=== PATIENT | male | born 1965 | race Caucasian/White ===

== ENCOUNTER 2017-06-27 17:46 | Emergency (ER) | payer OTHER, BC ==
--- NOTE | 2017-06-27 18:49 | ER Document Report ---
ED Medical Screen (RME) - General Chief Complaint: Urinary Retention Stated Complaint: LEFT FLANK PAIN,PAINFUL URINATION Time Seen by Provider: 06/27/17 18:47 Notes: Patient states he has been unable to urinate well for several days and now he has severe suprapubic pain he also feels nauseated lightheaded and dizzy. TRAVEL OUTSIDE OF THE [place] IN LAST 30 DAYS: No - Related Data Allergies/Adverse Reactions: morphine [Morphine] Allergy (Unknown, Verified 06/27/17 18:33) Past Medical History - Social History Frequency of alcohol use: None Drug Abuse: None - Past Medical History Cardiac Medical History: Reports: Hx Hypertension Renal/ Medical History: Denies: Hx Peritoneal Dialysis GI Medical History: Reports: Hx Gastroesophageal Reflux Disease Psychiatric Medical History: Reports: Hx Depression Past Surgical History: Reports: Hx Orthopedic Surgery - r knee - Immunizations Hx Diphtheria, Pertussis, Tetanus Vaccination: Yes Physical Exam - Vital signs Vitals: Temp Pulse Resp BP Pulse Ox 98.5 F 100 16 124/93 H 98 06/27/17 18:29 06/27/17 18:29 06/27/17 18:29 06/27/17 18:29 06/27/17 18:29 Course - Vital Signs Vital signs: Temp Pulse Resp BP Pulse Ox 98.5 F 100 16 124/93 H 98 06/27/17 18:29 06/27/17 18:29 06/27/17 18:29 06/27/17 18:29 06/27/17 18:29
[2017-06-27] MEDS ORDERED: KETOROLAC TROMETHAMINE INJ/PF 30 MG/1 ML SDV IV ONE (19:02)
[2017-06-27] MEDS ORDERED: MECLIZINE HCL 25 MG TABLET PO ONE (19:02)
[2017-06-27] MEDS ORDERED: LIDOCAINE 2% URO-JET 5 ML KIT MM ONE (19:02)
--- NOTE | 2017-06-27 19:02 | ER Document Report ---
ED GI/ - General Mode of Arrival: Ambulatory Information source: Patient TRAVEL OUTSIDE OF THE [place] IN LAST 30 DAYS: No - HPI Patient complains to provider of: Other - see narrative Similar symptoms previously: No Recently seen / treated by doctor: No <JESSIKA PIERCE - Last Filed: 06/27/17 20:02> <IVY CASSIDY - Last Filed: 06/28/17 01:52> - General Chief Complaint: Urinary Retention Stated Complaint: LEFT FLANK PAIN,PAINFUL URINATION Time Seen by Provider: 06/27/17 18:47 Notes: Patient is a 52 year old male that presents to the emergency department today with complaints of difficulty urinating x2-3 days. Patient states that initially he was "only able to get a little out and it burned" but he has now not been able to urinate since noon today. Patient states states he always feels like he needs to go now but cannot. Patient states he did not take his morning blood pressure medication this morning secondary to being hypotensive. Patient also complains of dizziness and back pain for two weeks. (JESSIKA PIERCE ) - Related Data Allergies/Adverse Reactions: morphine [Morphine] Allergy (Unknown, Verified 06/27/17 18:33) Past Medical History - General Information source: Patient - Social History Smoking Status: Former Smoker Frequency of alcohol use: None Drug Abuse: None Lives with: Family Family History: Reviewed & Not Pertinent, Hypertension, Other - Early heart attack Patient has suicidal ideation: No Patient has homicidal ideation: No - Past Medical History Cardiac Medical History: Reports: Hx Hypertension GI Medical History: Reports: Hx Gastroesophageal Reflux Disease Psychiatric Medical History: Reports: Hx Depression Past Surgical History: Reports: Hx Orthopedic Surgery - r knee - Immunizations Hx Diphtheria, Pertussis, Tetanus Vaccination: Yes <JESSIKA PIERCE - Last Filed: 06/27/17 20:02> Review of Systems - Review of Systems Constitutional: No symptoms reported EENT: No symptoms reported Cardiovascular: See HPI, Dizziness Respiratory: No symptoms reported Gastrointestinal: No symptoms reported Genitourinary: See HPI, Burning, Retention Male Genitourinary: No symptoms reported Musculoskeletal: See HPI, Back pain Skin: No symptoms reported Hematologic/Lymphatic: No symptoms reported Neurological/Psychological: No symptoms reported -: Yes All other systems reviewed and negative <JESSIKA PIERCE - Last Filed: 06/27/17 20:02> Physical Exam <JESSIKA PIERCE - Last Filed: 06/27/17 20:02> <IVY CASSIDY - Last Filed: 06/28/17 01:52> - Vital signs Vitals: Temp Pulse Resp BP Pulse Ox 98.5 F 100 16 124/93 H 98 06/27/17 18:29 06/27/17 18:29 06/27/17 18:29 06/27/17 18:29 06/27/17 18:29 - Notes Notes: Physical Exam: General: Alert, appears well. HEENT: Normocephalic. Atraumatic. PERRL. Extraocular movements intact. Oropharynx clear. Slight lateral gaze nystagmus. Neck: Supple. Non-tender. Respiratory: No respiratory distress. Clear and equal breath sounds bilaterally. Cardiovascular: Regular rate and rhythm. Abdominal: Suprapubic tenderness with palpation, palpable fullness. No distension. Normal Bowel Sounds. Back: Left paraspinal lumbar musculature tenderness with palpation. No deformity or step off. Extremities: Moves all four extremities. Upper extremities: Normal inspection. Normal ROM. Lower extremities: Normal inspection. No edema. Normal ROM. Neurological: Normal cognition. AAOx4. Normal speech. Psychological: Normal affect. Normal Mood. Skin: Warm. Dry. Normal color. (JESSIKA PIERCE) Course <JESSIKA PIERCE - Last Filed: 06/27/17 20:02> - Laboratory Result Diagrams: 06/27/17 20:10 06/27/17 20:10 - Diagnostic Test Radiology reviewed: Image reviewed, Reports reviewed - CT of the abdomen and pelvis with contrast does not show any acute inflammatory process or other abnormality other than multiple gallstones without evidence of inflammation or fluid. <IVY CASSIDY - Last Filed: 06/28/17 01:52> - Re-evaluation Re-evalutation: 06/27/17 20:46 At this time the patient's dizziness is somewhat improved from the Antivert. A Hopson catheter was placed and only about 200-300 mL of clear urine is drained and microscopically is unremarkable. Re-exam of the abdomen knowing the bladder is empty shows some right lower quadrant tenderness and more left lower quadrant tenderness. We will do a CT scan of the abdomen and pelvis with IV and oral contrast to see if he has an inflammatory process that was irritating the bladder giving him the urine symptoms. 06/28/17 01:43 CT scan does not show any inflammatory process in the abdomen or pelvis. There are multiple gallstones noted. The prostate is normal size and there is no signs of inflammation. The bladder is completely decompressed. The patient does feel much better at this time, I am not sure if it is due to the Toradol or the Antivert, or both. Hopson catheter will be removed, he will be discharged home with prescription for Antivert and encouraged to drink lots of fluids as we now know he is not having any problems emptying his bladder. (IVY CASSIDY) - Vital Signs Vital signs: Temp Pulse Resp BP Pulse Ox 97.5 F 64 16 120/69 97 06/27/17 23:47 06/27/17 23:47 06/27/17 23:47 06/27/17 23:47 06/27/17 23:47 - Laboratory Laboratory results interpreted by me: 06/27/17 06/27/17 20:10 20:10 RBC 5.80 H Potassium 3.5 L Discharge <JESSIKA PIERCE - Last Filed: 06/27/17 20:02> <IVY CASSIDY - Last Filed: 06/28/17 01:52> - Discharge Clinical Impression: Pelvic pain in male, Difficulty urinating, Vertigo Acute lumbar back pain Qualifiers: Back pain laterality: left Sciatica presence: without sciatica Qualified Code(s ): M54.5 - Low back pain Condition: Stable Disposition: HOME, SELF-CARE Additional Instructions: Vertigo: You have experienced an episode of vertigo -- a whirling dizziness which may be accompanied by nausea and vomiting or staggering. Vertigo is often caused by an irritation of the inner ear, in which case it is called labyrinthitis. It can also be a symptom of a degenerating inner ear, nerve damage, or brain injury. Your physician has evaluated you to determine whether any further testing is necessary. Vertigo is often treated with dramamine or meclizine. These medications are helpful, but stronger medication may be needed if you are vomiting. Rest in bed. You should not drive or operate machinery until completely better. It may take one to three weeks for recovery. If there are new symptoms, such as decreased hearing or vision, severe headache, weakness or faintness, or confusion, call the physician. TAKE THE MEDICATION PRESCRIBED FOR VERTIGO SYMPTOMS. DRINK PLENTY OF FLUIDS. TRY AZO STANDARD TO REDUCE THE SENSATION THAT YOU NEED TO URINATE. TAKE THE CT SCAN REPORT TO FOLLOW UP WITH YOUR DOCTOR. RETURN TO THE EMERGENCY ROOM IF ANY NEW OR WORSENING SYMPTOMS. Prescriptions: Meclizine HCl [Antivert 25 mg Tablet] 25 mg PO TID PRN #25 tablet PRN Reason: Scribe Attestation: 06/28/17 01:51 I personally performed the services described in the documentation, reviewed and edited the documentation which was dictated to the scribe in my presence, and it accurately records my words and actions. (IVY CASSIDY) Scribe Documentation - Scribe Written by Dexter:: Dexter Magaña, 06/27/20172013 acting as scribe for :: Hannah <JESSIKA PIERCE - Last Filed: 06/27/17 20:02>
[2017-06-27 19:51] LABS: APPEARANCE,URINE CLEAR; BILIRUBIN,URINE NEGATIVE (NEGATIVE); GLUCOSE, URINE NEGATIVE (NEGATIVE); KETONES,URINE NEGATIVE (NEGATIVE); LEUKOCYTE ESTERASE,URINE NEGATIVE (NEGATIVE); NITRITE,URINE NEGATIVE (NEGATIVE); PROTEIN,URINE NEGATIVE (NEGATIVE); URINE SPECIFIC GRAVITY 1.004; UROBILINOGEN,URINE NEGATIVE mg/dL (<2.0)
[2017-06-27 20:26] LABS: ABSOLUTE BASOPHILS # (AUTO) 0.1 10^3/uL (0.0-0.2); ABSOLUTE EOSINOPHILS # (AUTO) 0.3 10^3/uL (0.0-0.6); ABSOLUTE MONOCYTES (AUTO) 0.6 10^3/uL (0.1-1.4); ABSOLUTE NEUT (AUTO) 5.9 10^3/uL (1.7-8.2); BASOPHILS % (AUTO) 0.8 % (0-2); HEMATOCRIT 49.5 % (37.9-51.0); HGB HCT DIFFERENCE 1.5; LYMPHOCYTES % (AUTO) 22.8 % (13-45); MEAN CORPUSCULAR HEMOGLOBIN 29.4 pg (27.0-33.4); MEAN CORPUSCULAR HGB CONC 34.4 g/dL (32.0-36.0); MEAN CORPUSCULAR VOLUME 85 fl (80-97); MONOCYTES % (AUTO) 7.1 % (3-13); RED CELL DISTRIBUTION WIDTH 13.9 % (11.5-14.0); SEGMENTED NEUTROPHILS % (AUTO) 66.3 % (42-78); WHITE BLOOD COUNT 8.8 10^3/uL (4.0-10.5)
[2017-06-27] MEDS ORDERED: NORMAL SALINE 1000 ML 1,000 ML IV ONE (20:42)
[2017-06-27 20:43] LABS: ALANINE AMINOTRANSFERASE 41 U/L (21-72); ALBUMIN 4.3 g/dL (3.5-5.0); ALKALINE PHOSPHATASE 65 U/L (38-126); ANION GAP 11 (5-19); ASPARTATE AMINO TRANSFERASE 26 U/L (17-59); BILIRUBIN,DIRECT 0.3 mg/dL (0.0-0.4); BILIRUBIN,TOTAL 0.6 mg/dL (0.2-1.3); BLOOD UREA NITROGEN 17 mg/dL (7-20); CARBON DIOXIDE 26 mmol/L (22-30); CHLORIDE 100 mmol/L (98-107); CREATININE RESULT 0.75 mg/dL (0.52-1.25); GLUCOSE 100 mg/dL (75-110); POTASSIUM 3.5 mmol/L (3.6-5.0); SODIUM 137.2 mmol/L (137-145)
[2017-06-28] MEDS ORDERED: PHENAZOPYRIDINE HCL 200 MG TABLET PO ONE (01:43)
--- NOTE | 2017-06-28 01:46 | RADIOLOGY REPORT (SQ) ---
EXAM DESCRIPTION: CT ABD/PELVIS WITH IV ORAL COMPLETED DATE/TIME: 06/28/2017 12:45 am REASON FOR STUDY: pelvic pain COMPARISON: None. TECHNIQUE: CT scan of the abdomen and pelvis performed using helical scanning technique with dynamic intravenous contrast injection. No oral contrast. Images reviewed with lung, soft tissue, and bone windows. Reconstructed coronal and sagittal MPR images reviewed. Delayed images for evaluation of the urinary system also acquired. All images stored on PACS. All CT scanners at this facility use dose modulation, iterative reconstruction, and/or weight based d osing when appropriate to reduce radiation dose to as low as reasonably achievable (ALARA). [facility]: Dose Right [facility]: CareDose [facility]: Dose Right [facility]: Teradose 4D [facility]: iAcademic CONTRAST TYPE AND DOSE: contrast/concentration: Isovue 370.00 mg/ml; Total Contrast Delivered: 98.0 ml; Total Saline Delivered: 70.0 ml RENAL FUNCTION: Creatinine 0.8 RADIATION DOSE: Up-to-date CT equipment and radiation dose reduction techniques were employed. CTDIv ol: 13.0 mGy. DLP: 1517 mGy-cm.. LIMITATIONS: None. FINDINGS: LOWER CHEST: No significant findings. No nodules or infiltrates. LIVER: Normal size. No masses. No dilated ducts. SPLEEN: Normal size. No focal lesions. PANCREAS: No masses. No significant calcifications. No adjacent inflammation or peripancreatic fluid collections. Pancreatic duct not dilated. GALLBLADDER: Gallstones. No inflammatory changes to suggest cholecystitis. ADRENAL GLANDS: Indeterminate nodular 1.7 cm left adrenal lesion with CT density of 112 Hounsfield un its on cortical phase imaging and 71 Hounsfield units on delayed imaging. RIGHT KIDNEY AND URETER: No solid masses. No significant calcifications. No hydronephrosis or hyd roureter. LEFT KIDNEY AND URETER: No solid masses. No significant calcifications. No hydronephrosis or hydr oureter. AORTA AND VESSELS: No aneurysm. No dissection. Renal arteries, SMA, celiac without stenosis. RETROPERITONEUM: No retroperitoneal adenopathy, hemorrhage or masses. BOWEL AND PERITONEAL CAVITY: No masses or inflammatory changes. No free fluid or peritoneal masses. Surgical clips of the upper abdomen. APPENDIX: Normal. PELVIS: No mass. No free fluid. Normal bladder. 4.8 cm diameter prostate. Urinary bladder catheter . ABDOMINAL WALL: No masses. No hernias. BONES: Posterior L4-S1 hardware fusion. Screw fixation at the anterior L5 and S1 vertebral bodies. With mild lower thoracic disc desiccation. OTHER: No other significant finding. IMPRESSION: 1. Indeterminate 1.7 cm left adrenal lesion. Dedicated MRI or CT of the adrenals recom mended. 2. Cholelithiasis. COMMENT: This report was discussed with IVY CASSIDY MD at00:50 on 06/28/2017. TECHNICAL DOCUMENTATION: JOB ID: [id number] Quality ID # [id number]: Final reports with documentation of one or more dose reduction techniques (e.g., Au tomated exposure control, adjustment of the mA and/or kV according to patient size, use of iterative reconstruction technique) 2010 [email or web address] ([email or web address])- All Rights Reserved
[2017-06-28 01:58] VITALS: BP 105/75
== END 2017-06-28 02:19 | disposition home or self-care (01) ==
LOC: ER 17:46
DX: R10.2 Pelvic and perineal pain (principal); R30.0 Dysuria; R42 Dizziness and giddiness; M54.5 Low back pain; I10 Essential (primary) hypertension; Z88.6 Allergy status to analgesic agent
CPT/HCPCS: 99284; 96361; 51702; 96374; 36415; 87040; 85025; 80053; 81001; 74177; J1885; J3490 ×2; J7030

== ENCOUNTER 2017-08-16 10:54 | Observation (INO) | payer OTHER, BC ==
[2017-08-16] MEDS ORDERED: ASPIRIN 81 MG TABLET, CHEWABLE PO ONE (10:56)
[2017-08-16 11:18] LABS: ABSOLUTE BASOPHILS # (AUTO) 0.1 10^3/uL (0.0-0.2); ABSOLUTE EOSINOPHILS # (AUTO) 0.2 10^3/uL (0.0-0.6); ABSOLUTE LYMPHOCYTES (AUTO) 2.4 10^3/uL (0.5-4.7); ABSOLUTE MONOCYTES (AUTO) 0.6 10^3/uL (0.1-1.4); ABSOLUTE NEUT (AUTO) 4.1 10^3/uL (1.7-8.2); BASOPHILS % (AUTO) 1.4 % (0-2); EOSINOPHILS % (AUTO) 2.9 % (0-6); HEMATOCRIT 49.9 % (37.9-51.0); HEMOGLOBIN 17.6 g/dL (13.5-17.0); HGB HCT DIFFERENCE 2.9; LYMPHOCYTES % (AUTO) 32.4 % (13-45); MEAN CORPUSCULAR HEMOGLOBIN 29.5 pg (27.0-33.4); MEAN CORPUSCULAR HGB CONC 35.3 g/dL (32.0-36.0); MEAN CORPUSCULAR VOLUME 84 fl (80-97); MONOCYTES % (AUTO) 8.2 % (3-13); RED BLOOD COUNT 5.97 10^6/uL (4.35-5.55); RED CELL DISTRIBUTION WIDTH 13.5 % (11.5-14.0); SEGMENTED NEUTROPHILS % (AUTO) 55.1 % (42-78); WHITE BLOOD COUNT 7.4 10^3/uL (4.0-10.5)
[2017-08-16 11:41] LABS: ALANINE AMINOTRANSFERASE 56 U/L (21-72); ALBUMIN 4.5 g/dL (3.5-5.0); ALKALINE PHOSPHATASE 66 U/L (38-126); ANION GAP 13 (5-19); ASPARTATE AMINO TRANSFERASE 30 U/L (17-59); BILIRUBIN,DIRECT 0.4 mg/dL (0.0-0.4); BILIRUBIN,TOTAL 0.9 mg/dL (0.2-1.3); BLOOD UREA NITROGEN 16 mg/dL (7-20); CALCIUM 9.9 mg/dL (8.4-10.2); CARBON DIOXIDE 24 mmol/L (22-30); CHLORIDE 103 mmol/L (98-107); CREATINE KINASE 80 U/L (55-170); CREATININE RESULT 0.77 mg/dL (0.52-1.25); GLUCOSE 105 mg/dL (75-110); POTASSIUM 4.2 mmol/L (3.6-5.0); SODIUM 140.4 mmol/L (137-145); TOTAL PROTEIN 7.3 g/dL (6.3-8.2)
[2017-08-16 11:53] LABS: CREATINE KINASE MB 0.91 ng/mL (<4.55)
[2017-08-16 11:55] LABS: TROPONIN I < 0.012 ng/mL
--- NOTE | 2017-08-16 12:14 | RADIOLOGY REPORT (SQ) ---
EXAM DESCRIPTION: CHEST SINGLE VIEW COMPLETED DATE/TIME: 08/16/2017 11:41 am REASON FOR STUDY: chest pain COMPARISON: 05/26/2016 EXAM PARAMETERS: NUMBER OF VIEWS: One view. TECHNIQUE: Single frontal radiographic view of the chest acquired. RADIATION DOSE: NA LIMITATIONS: None. FINDINGS: LUNGS AND PLEURA: No opacities, masses or pneumothorax. No pleural effusion. MEDIASTINUM AND HILAR STRUCTURES: No masses. Contour normal. HEART AND VASCULAR STRUCTURES: Heart normal in size. Normal vasculature. BONES: No acute findings. HARDWARE: None in the chest. OTHER: No other significant finding. IMPRESSION: NO ACUTE RADIOGRAPHIC FINDING IN THE CHEST. TECHNICAL DOCUMENTATION: JOB ID: [id number]
--- NOTE | 2017-08-16 12:32 | ER Document Report ---
ED General - General Chief Complaint: Chest Pain Stated Complaint: CHEST PAIN Time Seen by Provider: 08/16/17 11:00 Mode of Arrival: Ambulatory Information source: Patient Notes: 52-year-old male history of angina presents with complaints of chest pain. Patient notes that yesterday after running he became dizzy lightheaded. Today after dropping his daughter off at school he had sudden midsternal chest pressure sensation associated with flushing and difficulty breathing. Patient notes after receiving 4 nitros his chest pain resolved Patient did have a stress test last year TRAVEL OUTSIDE OF THE [place] IN LAST 30 DAYS: No - HPI Onset: Just prior to arrival Onset/Duration: Sudden Quality of pain: Pressure Severity: Moderate Pain Level: 3 Associated symptoms: Chest pain, Shortness of breath Exacerbated by: Denies Relieved by: Denies Similar symptoms previously: Yes Recently seen / treated by doctor: Yes - Related Data Allergies/Adverse Reactions: morphine [Morphine] Allergy (Unknown, Verified 06/27/17 18:33) Past Medical History - Social History Smoking Status: Never Smoker Cigarette use (# per day): No Chew tobacco use (# tins/day): No Smoking Education Provided: No Frequency of alcohol use: None Drug Abuse: None Family History: Reviewed & Not Pertinent, Hypertension, Other - Early heart attack - Past Medical History Cardiac Medical History: Reports: Hx Hypertension Renal/ Medical History: Denies: Hx Peritoneal Dialysis GI Medical History: Reports: Hx Gastroesophageal Reflux Disease Psychiatric Medical History: Reports: Hx Depression Past Surgical History: Reports: Hx Orthopedic Surgery - r knee - Immunizations Hx Diphtheria, Pertussis, Tetanus Vaccination: Yes Review of Systems - Review of Systems Notes: REVIEW OF SYSTEMS: CONSTITUTIONAL : Denies fever, chills, or sweats. Denies recent illness. EENT: Denies eye, ear, throat, or mouth pain or symptoms. Denies nasal or sinus congestion or discharge. Denies throat, tongue, or mouth swelling or difficulty swallowing. CARDIOVASCULAR: Admits to chest pain RESPIRATORY: Denies cough, cold, or chest congestion. Denies shortness of breath, difficulty breathing, or wheezing. GASTROINTESTINAL: Denies abdominal pain or distention. Denies nausea, vomiting , or diarrhea. Denies blood in vomitus, stools, or per rectum. Denies black, tarry stools. Denies constipation. GENITOURINARY: Denies difficulty urinating, painful urination, burning, frequency, blood in urine, or discharge. MUSCULOSKELETAL: Denies back or neck pain or stiffness. Denies joint pain or swelling. SKIN: Denies rash, lesions or sores. HEMATOLOGIC : Denies easy bruising or bleeding. LYMPHATIC: Denies swollen, enlarged glands. NEUROLOGICAL: Denies confusion or altered mental status. Denies passing out or loss of consciousness. Denies dizziness or lightheadedness. Denies headache. Denies weakness or paralysis or loss of use of either side. Denies problems with gait or speech. Denies sensory loss, numbness, or tingling. Denies seizures. PSYCHIATRIC: Denies anxiety or stress. Denies depression, suicidal ideation, or homicidal ideation. ALL OTHER SYSTEMS REVIEWED AND NEGATIVE. Dictation was performed using [employer] voice recognition software PHYSICAL EXAMINATION: GENERAL: Well-appearing, well-nourished and in no acute distress. HEAD: Atraumatic, normocephalic. EYES: Pupils equal round and reactive to light, extraocular movements intact, sclera anicteric, conjunctiva are normal. ENT: Nares patent, oropharynx clear without exudates. Moist mucous membranes. NECK: Normal range of motion, supple without lymphadenopathy LUNGS: Breath sounds clear to auscultation bilaterally and equal. No wheezes rales or rhonchi. HEART: Regular rate and rhythm without murmurs ABDOMEN: Soft, tender in the right upper quadrant Musculoskeletal: Normal range of motion, no pitting or edema. No cyanosis. NEUROLOGICAL: Cranial nerves grossly intact. Normal speech, normal gait. Normal sensory, motor exams PSYCH: Normal mood, normal affect. SKIN: Warm, Dry, normal turgor, no rashes or lesions noted. Physical Exam - Vital signs Vitals: Temp Resp Pulse Ox 97.9 F 18 100 08/16/17 11:10 08/16/17 11:10 08/16/17 11:10 Course - Re-evaluation Re-evalutation: 08/16/17 12:31 Cardiac enzymes are negative EKG was normal patient is pain-free at this time, patient will be observed, ultrasound is pending of the right upper quadrant since he is mildly tender there - Vital Signs Vital signs: Temp Pulse Resp BP Pulse Ox 97.9 F 13 120/83 100 08/16/17 11:10 08/16/17 11:11 08/16/17 11:11 08/16/17 11:11 - Laboratory Result Diagrams: 08/16/17 11:07 08/16/17 11:07 Laboratory results interpreted by me: 08/16/17 11:07 RBC 5.97 H Hgb 17.6 H Discharge - Discharge Clinical Impression: Chest pain Qualifiers: Chest pain type: unspecified Qualified Code(s): R07.9 - Chest pain, unspecified Condition: Stable Disposition: ADMITTED OBSERVATION Admitting Provider: Hospitalist Unit Admitted: Telemetry
--- NOTE | 2017-08-16 14:54 | RADIOLOGY REPORT (SQ) ---
EXAM DESCRIPTION: U/S ABDOMEN LIMITED W/O DOP COMPLETED DATE/TIME: 08/16/2017 2:45 pm REASON FOR STUDY: RUQ pain COMPARISON: None. TECHNIQUE: Dynamic and static grayscale images acquired of the abdomen and recorded on PACS. Additio nal selected color Doppler and spectral images recorded. LIMITATIONS: None. FINDINGS: PANCREAS: Head and body normal. Tail obscured by gas. LIVER: 17.4 cm. Increased echogenicity. LIVER VASCULATURE: Normal directional flow of the main portal vein and hepatic veins. GALLBLADDER: Gallstones. Normal wall thickness. No pericholecystic fluid. ULTRASOUND-DETECTED FREEDMAN'S SIGN: Negative. INTRAHEPATIC DUCTS AND COMMON DUCT: CBD and intrahepatic ducts normal caliber. No filling defects. INFERIOR VENA CAVA: Normal flow. AORTA: Mid and distal aorta were normal. The proximal aorta was obscured. RIGHT KIDNEY: Normal size, 11.9 cm. Normal echogenicity. No solid or suspicious masses. No hydroneph rosis. No calcifications. PERITONEAL AND RIGHT PLEURAL SPACE: No ascites or effusions. OTHER: No other significant findings. IMPRESSION: Fatty infiltration of the liver. Cholelithiasis with no evidence of cholecystitis. No ductal dilatation. TECHNICAL DOCUMENTATION: JOB ID: [id number] [email or web address] All Rights Reserved
[2017-08-16] MEDS ORDERED: NORMAL SALINE 1000 ML 1,000 ML IV PRN (15:16)
[2017-08-16] MEDS ORDERED: NITROGLYCERIN 0.4 MG/TAB 25 TAB/BOTTLE SL PRN (15:18)
[2017-08-16] MEDS ORDERED: ACETAMINOPHEN 325 MG TABLET PO PRN (15:20)
[2017-08-16] MEDS ORDERED: ONDANSETRON HCL INJ/PF 4 MG/2 ML SDV IV PRN (15:20)
[2017-08-16] MEDS ORDERED: BACLOFEN 10 MG TABLET PO PRN (15:25)
--- NOTE | 2017-08-16 15:35 | PDOC H&P ---
History of Present Illness Admission Date/PCP: 08/16/17 13:17 Patient complains of: Chest pain History of Present Illness: 52-year-old male history of angina presents with complaints of chest pain. Patient notes that yesterday after running he became dizzy lightheaded. Today after dropping his daughter off at school he had sudden midsternal chest pressure sensation associated with flushing and difficulty breathing. There is also associated palpitation and lightheadedness. There is no diaphoresis. There is a little bit of nausea but no vomiting. Patient notes after receiving 4 nitros his chest pain resolved. Recent was brought to the emergency room for evaluation and was referred for admission. Past Medical History Cardiac Medical History: Reports: Hypertension GI Medical History: Reports: Gastroesophageal Reflux Disease, Other - Cholelithiasis Psychiatric Medical History: Reports: Depression Past Surgical History Past Surgical History: Reports: Orthopedic Surgery - r knee Social History Information Source: Patient Smoking Status: Never Smoker Frequency of Alcohol Use: None Hx Recreational Drug Use: No Drugs: None Hx Prescription Drug Abuse: No Family History Family History: Hypertension, Other - Early heart attack Parental Family History Reviewed: Yes Children Family History Reviewed: Yes Sibling(s) Family History Reviewed.: Yes Medication/Allergy Home Medications: Amlodipine Besylate [Norvasc 10 mg Tablet] 10 mg PO DAILY 08/16/17 Aspirin [Aspirin EC] 81 mg PO DAILY 08/16/17 Baclofen [Baclofen 10 mg Tablet] 10 mg PO DAILYP PRN 08/16/17 Cetirizine HCl [Zyrtec 10 mg Tablet] 25 mg PO DAILY 08/16/17 Docusate Calcium [Stool Softener] 240 mg PO QHS 08/16/17 Hydralazine HCl [Apresoline 25 mg Tablet] 25 mg PO Q8 08/16/17 Hydrochlorothiazide [Hydrodiuril 25 mg Tablet] 25 mg PO QAM 08/16/17 Ibuprofen [Motrin 800 mg Tablet] 800 mg PO Q8HP PRN 08/16/17 Losartan Potassium [Cozaar 100 mg Tablet] 100 mg PO DAILY 08/16/17 Meclizine HCl [Antivert 25 mg Tablet] 25 mg PO Q8HP PRN 08/16/17 Metoprolol Tartrate [Lopressor 25 mg Tablet] 25 mg PO Q12 08/16/17 Nitroglycerin [Nitrostat 0.4 mg (1/150 Gr) Tabs 25/Bottle] 1 tab SL Q5MP PRN Sertraline HCl [Zoloft 50 mg Tablet] 150 mg PO DAILY 08/16/17 Allergies/Adverse Reactions: morphine [Morphine] Allergy (Unknown, Verified 06/27/17 18:33) Review of Systems Constitutional: ABSENT: chills, fever(s), headache(s), night sweats, weight gain , weight loss Eyes: ABSENT: visual disturbances Ears: ABSENT: hearing changes Nose, Mouth, and Throat: ABSENT: mouth pain, sore throat Cardiovascular: PRESENT: chest pain, dyspnea on exertion, palpitations. ABSENT : edema, orthropnea Respiratory: PRESENT: cough - Occasional, dyspnea. ABSENT: hemoptysis, sputum Gastrointestinal: PRESENT: nausea. ABSENT: abdominal pain, bloating, constipation, diarrhea, hematemesis, hematochezia, melena, vomiting Genitourinary: ABSENT: dysuria, hematuria Musculoskeletal: ABSENT: joint swelling Integumentary: ABSENT: pruritus, rash, wounds Neurological: ABSENT: abnormal gait, abnormal speech, confusion, dizziness, focal weakness, syncope Psychiatric: ABSENT: anxiety, depression, homidical ideation, suicidal ideation Endocrine: ABSENT: cold intolerance, heat intolerance, polydipsia, polyphagia, polyuria Hematologic/Lymphatic: ABSENT: easy bleeding, easy bruising Physical Exam Vital Signs: Temp Pulse Resp BP Pulse Ox 98.0 F 13 123/84 95 08/16/17 13:01 08/16/17 13:01 08/16/17 13:01 08/16/17 13:01 General appearance: PRESENT: no acute distress, cooperative, well-developed, well-nourished Head exam: PRESENT: atraumatic, normocephalic Eye exam: PRESENT: conjunctiva pink, EOMI, PERRLA. ABSENT: scleral icterus Ear exam: PRESENT: normal external ear exam Mouth exam: PRESENT: moist, neck supple, tongue midline Neck exam: ABSENT: carotid bruit, JVD, lymphadenopathy, thyromegaly Respiratory exam: PRESENT: clear to auscultation luis, unlabored. ABSENT: rales , rhonchi, wheezes Cardiovascular exam: PRESENT: RRR, +S1, +S2. ABSENT: diastolic murmur, gallop, rubs, systolic murmur Pulses: PRESENT: normal dorsalis pedis pul Vascular exam: PRESENT: normal capillary refill GI/Abdominal exam: PRESENT: normal bowel sounds, soft, tenderness - Mild right upper quadrant. ABSENT: distended, guarding, mass, organolmegaly, rebound Rectal exam: PRESENT: deferred Extremities exam: PRESENT: full ROM. ABSENT: calf tenderness, clubbing, pedal edema Neurological exam: PRESENT: alert, awake, oriented to person, oriented to place , oriented to time, oriented to situation Psychiatric exam: PRESENT: appropriate affect, normal mood. ABSENT: homicidal ideation, suicidal ideation Skin exam: PRESENT: dry, intact, warm. ABSENT: cyanosis, rash Results Impressions: Chest X-Ray 08/16/17 10:57 IMPRESSION: NO ACUTE RADIOGRAPHIC FINDING IN THE CHEST. Abdomen Ultrasound 08/16/17 12:23 IMPRESSION: Fatty infiltration of the liver. Cholelithiasis with no evidence of cholecystitis. No ductal dilatation. Assessment & Plan - Diagnosis (1) Chest pain Qualifiers: Chest pain type: unspecified Qualified Code(s): R07.9 - Chest pain, unspecified Is this a current diagnosis for this admission?: Yes (2) Cholelithiasis Qualifiers: Cholelithiasis location: gallbladder Cholecystitis presence: without cholecystitis Biliary obstruction: without biliary obstruction Qualified Code(s): K80.20 - Calculus of gallbladder without cholecystitis without obstruction Is this a current diagnosis for this admission?: Yes (3) Hypertension Qualifiers: Hypertension type: essential hypertension Qualified Code(s): I10 - Essential (primary) hypertension Is this a current diagnosis for this admission?: Yes (4) GERD (gastroesophageal reflux disease) Qualifiers: Esophagitis presence: without esophagitis Qualified Code(s): K21.9 - Gastro -esophageal reflux disease without esophagitis Is this a current diagnosis for this admission?: Yes (5) Depression Qualifiers: Depression Type: unspecified Qualified Code(s): F32.9 - Major depressive disorder, single episode, unspecified Is this a current diagnosis for this admission?: Yes - Time Time Spent: 30 to 50 Minutes - Plan Summary Plan Summary: Patient will be admitted to observation. He will be placed on nitroglycerin as well as aspirin. Supplemental oxygen will be given as well as DVT prophylaxis with Lovenox. Serial enzymes will be obtained and if negative we will proceed with a stress test. Further testing depends on the initial evaluation as outlined above.
[2017-08-16] MEDS ORDERED: ENOXAPARIN SODIUM INJ 40 MG/0.4 ML DISP.SYRIN SUBCUT ONE (17:00)
[2017-08-16] MEDS: LANSOPRAZOLE 30 MG TAB.RAP.DR PO SCH (17:07)
[2017-08-16] MEDS: NITROGLYCERIN 2% OINTMENT 1 GM PACKET TP SCH ×2 (18:07→23:24)
[2017-08-16] MEDS: DOCUSATE SODIUM 100 MG CAPSULE PO SCH (18:07)
--- NOTE | 2017-08-16 20:25 | EKG REPORT ---
SEVERITY:- NORMAL ECG - SINUS RHYTHM : Confirmed by: Tarah Robledo MD 16-Aug-2017 20:24:24
[2017-08-16] MEDS ORDERED: HYDRALAZINE HCL 25 MG TABLET PO SCH (22:00)
[2017-08-16] MEDS: METOPROLOL SUCCINATE 25 MG TAB.SR.24H PO SCH (22:01)
[2017-08-17] MEDS: NITROGLYCERIN 2% OINTMENT 1 GM PACKET TP SCH ×2 (05:52→13:25)
[2017-08-17] MEDS: LANSOPRAZOLE 30 MG TAB.RAP.DR PO SCH (05:52)
[2017-08-17] MEDS ORDERED: ASPIRIN 81 MG TABLET, CHEWABLE PO SCH (10:00)
[2017-08-17] MEDS ORDERED: ENOXAPARIN SODIUM INJ 40 MG/0.4 ML DISP.SYRIN SUBCUT SCH (10:00)
[2017-08-17] MEDS ORDERED: SERTRALINE HCL 50 MG TABLET PO SCH (10:00)
[2017-08-17] MEDS ORDERED: LOSARTAN POTASSIUM 50 MG TABLET PO SCH (10:00)
[2017-08-17] MEDS ORDERED: AMLODIPINE BESYLATE 10 MG TABLET PO SCH (10:00)
[2017-08-17] MEDS ORDERED: AMINOPHYLLINE INJ/PF 250 MG/10 ML SDV IV ONE (11:01)
[2017-08-17] MEDS ORDERED: REGADENOSON INJ 0.4 MG/5 ML DISP.SYRIN IV ONE (11:01)
[2017-08-17] MEDS: DOCUSATE SODIUM 100 MG CAPSULE PO SCH (11:05)
[2017-08-17] MEDS: METOPROLOL SUCCINATE 25 MG TAB.SR.24H PO SCH (11:07)
[2017-08-17 12:57] VITALS: BP 135/80
--- NOTE | 2017-08-17 12:58 | DRAGON STRESS TEST REPORT ---
INTRAVENOUS LEXISCAN CARDIOLITE STRESS TEST USING SINGLE PHOTON EMMISION COMPUTERIZED TOMOGRAPHIC. DATE OF PROCEDURE: August 17, 2017 INDICATION : Chest pain CARDIAC RISK FACTORS: Hypertension RESTING EKG: Sinus rhythm without any baseline ST-T wave changes STRESS EKG: No significant changes noted with LexiScan bolus REASON FOR TERMINATION: Protocol. PROCEDURE REPORT: Baseline heart rate 77 beats per minute with blood pressure of 124/74. Patient had no significant complaints. Heart rate at 2 minutes post bolus 90 with a blood pressure of 137/70. 3 minutes post bolus heart rate 83 with blood pressure of 130/70. No significant EKG changes were noted. Patient had no significant complaints during the procedure or postprocedure. Patient injected with Aminophyllin 75 mg at 3 minutes or later after Lexiscan bolus. CONCLUSIONS: Normal EKG and hemodynamic response to IV LexiScan. NUCLEAR DATA: At rest the patient was given 13.86 millicuries of technetium 99 sestamibi injected intravenously. As per protocol rest gated SPECT images were obtained. Subsequently the patient was given intravenous LexiScan at a dose of 0.4 mg in 5 mL intravenously, followed by flush with normal saline. Subsequently the stress dose of 46.1 millicuries of technetium 99 sestamibi was injected intravenously. As per protocol stress gated images were obtained. NUCLEAR INTERPRETATION: Both raw and processed data were used for interpretation. Visual, qualitative, computer-generated quantitative data was used. There was good myocardial uptake of technetium compound. Motion artifact and soft tissue attenuations were noted. Increased visceral uptake was noted. No definitive areas of transient perfusion defect noted. No definitive areas of fixed perfusion defect or scars noted. EKG gated imaging showed LV EF at 51 %, rest and stress gated EF similar visually. T. I D. ratio was 1.18. Lung heart ratio noted to be within normal limits 0.38. No significant extracardiac and abnormal radiotracer activities were noted. RV free wall uptake was noted to be WNL. IMPRESSION: Also refer to comments under nuclear interpretation. Also test results needs to be interpreted in the context of pretest probability. 1. No definitive areas of transient perfusion defect noted 2. There is no definitive scintigraphic evidence of myocardial infarction/scar. 3. EKG gated imaging shows left ventricular ejection fraction of approximately 51 %. 4. Clinical correlation requested as occasionally single vessel disease or balanced ischemia could be missed. In approximately 10% of the cases Lexiscan may not cause adequate vasodilatory stress. RECOMMENDATIONS: Aggressive risk factor modification, medical therapy. Cardiology follow-up. Clinical correlation with echocardiogram derived ejection fraction. Inability to exercise by itself can lead to increased cardiovascular event risks. Consider cardiology consultation and or follow-up if clinically indicated. I AM AVAILABLE FOR CARDIOLOGY CONSULTATION AND FOLLOWUP IF REQUESTED BY PMD Rufina Elliott M.D., LAUREN Manager Budget machinist job setter, Board certified in cardiovascular diseases, Nuclear cardiology, Echocardiography Cardiac CT and cardiac MRI Ph. [phone] [facility]
--- NOTE | 2017-08-17 14:48 | PDOC DISCHARGE SUMMARY ---
General - Admit/Disc Date/PCP Admission Date/Primary Care Provider: 08/16/17 15:20 Discharge Date: 08/17/17 - Discharge Diagnosis (1) Chest pain Is this a current diagnosis for this admission?: Yes (2) Cholelithiasis Is this a current diagnosis for this admission?: Yes (3) Hypertension Is this a current diagnosis for this admission?: Yes (4) GERD (gastroesophageal reflux disease) Is this a current diagnosis for this admission?: Yes (5) Depression Is this a current diagnosis for this admission?: Yes - Additional Information Resuscitation Status: Full Code Discharge Diet: Cardiac Discharge Activity: Activity As Tolerated, Balance Activity w/Rest Home Medications: Acetaminophen [Pain Relief] 650 mg PO Q4HP PRN 08/16/17 Amlodipine Besylate [Norvasc 10 mg Tablet] 10 mg PO DAILY 08/16/17 Aspirin [Aspirin EC] 81 mg PO DAILY 08/16/17 Baclofen [Baclofen 10 mg Tablet] 10 mg PO DAILYP PRN 08/16/17 Cetirizine HCl [Zyrtec 10 mg Tablet] 25 mg PO DAILY 08/16/17 Docusate Calcium [Stool Softener] 240 mg PO QHS 08/16/17 Hydrochlorothiazide [Hydrodiuril 25 mg Tablet] 25 mg PO QAM 08/16/17 Losartan Potassium [Cozaar 100 mg Tablet] 100 mg PO DAILY 08/16/17 Meclizine HCl [Antivert 25 mg Tablet] 25 mg PO Q8HP PRN 08/16/17 Metoprolol Tartrate [Lopressor 25 mg Tablet] 25 mg PO Q12 08/16/17 Nitroglycerin [Nitrostat 0.4 mg (1/150 Gr) Tabs 25/Bottle] 1 tab SL Q5MP PRN Sertraline HCl [Zoloft 50 mg Tablet] 150 mg PO DAILY 08/16/17 Additional Information: Return to the emergency room if symptoms recur. Gallbladder emptying scan as outpatient with primary care physician. History of Present Illness Patient complains of: Chest pain History of Present Illness: 52-year-old male history of angina presents with complaints of chest pain. Patient notes that yesterday after running he became dizzy lightheaded. Today after dropping his daughter off at school he had sudden midsternal chest pressure sensation associated with flushing and difficulty breathing. There is also associated palpitation and lightheadedness. There is no diaphoresis. There is a little bit of nausea but no vomiting. Patient notes after receiving 4 nitros his chest pain resolved. Recent was brought to the emergency room for evaluation and was referred for admission. Hospital Course Hospital Course: The patient was admitted to telemetry. Serial cardiac enzymes were obtained and were negative. The patient was placed on oxygen and nitroglycerin. Antiplatelet therapy was likewise started. Patient eventually underwent stress test showing no reversible ischemia or prior fixed defect. The patient's chest pain resolved. Course was noted that for right upper quadrant discomfort that resolved spontaneously. Patient apparently had history of gallstone and right upper quadrant ultrasound was obtained showing cholelithiasis with no evidence of cholecystitis. Chest x-ray did not reveal any acute infiltrate. The rest of the hospital stays unremarkable. The patient symptomatologies resolved. She was advised to have a gallbladder emptying scan on an outpatient basis with his primary care physician. Physical Exam Vital Signs: Temp Pulse Resp BP Pulse Ox 98.0 F 76 16 135/80 H 97 08/17/17 11:37 08/17/17 14:00 08/17/17 11:37 08/17/17 11:37 08/17/17 11:37 Intake & Output 08/16/17 08/17/17 08/18/17 06:59 06:59 06:59 Intake Total 1760 Output Total 400 Balance 1360 Weight 97.2 kg General appearance: PRESENT: no acute distress, cooperative Head exam: PRESENT: normocephalic Eye exam: PRESENT: EOMI Mouth exam: PRESENT: moist, neck supple Neck exam: ABSENT: JVD Respiratory exam: PRESENT: clear to auscultation luis. ABSENT: rhonchi, wheezes Cardiovascular exam: PRESENT: RRR. ABSENT: gallop GI/Abdominal exam: PRESENT: soft. ABSENT: distended, tenderness Extremities exam: ABSENT: pedal edema Neurological exam: PRESENT: alert, awake, oriented to situation Skin exam: PRESENT: dry, warm. ABSENT: cyanosis Results Laboratory Results: 08/16/17 08/16/17 08/16/17 17:05 17:05 23:00 Creatine Kinase 55 66 Troponin I < 0.012 08/16/17 23:00 Creatine Kinase Troponin I < 0.012 Impressions: Chest X-Ray 08/16/17 10:57 IMPRESSION: NO ACUTE RADIOGRAPHIC FINDING IN THE CHEST. Abdomen Ultrasound 08/16/17 12:23 IMPRESSION: Fatty infiltration of the liver. Cholelithiasis with no evidence of cholecystitis. No ductal dilatation. Qualifiers PATEINT BEING DISCHARGED WITH ANY OF THE FOLLOWING DIAGNOSIS?: No Plan Discharge Plan: Follow-up with primary care physician in 1 week. Time Spent: Less than 30 Minutes
== END 2017-08-17 15:30 | disposition home or self-care (01) ==
LOC: ER 10:54 → EH 13:17 → UNDOADMOB 13:17 → 4N 14:46 → EH 14:46 → 4N 15:20
DX: R07.89 Other chest pain (principal); K80.20 Calculus of gallbladder without cholecystitis without obstruction; I10 Essential (primary) hypertension; K21.9 Gastro-esophageal reflux disease without esophagitis; F32.9 Major depressive disorder, single episode, unspecified; R42 Dizziness and giddiness; R06.00 Dyspnea, unspecified; R23.2 Flushing; K76.0 Fatty (change of) liver, not elsewhere classified; Z82.49 Family history of ischemic heart disease and other diseases of the circulatory system; Z79.82 Long term (current) use of aspirin; Z79.899 Other long term (current) drug therapy
CPT/HCPCS: 93005; 99285; 36415; 82553; 82550; 85025; 80053; 84484; 93017; 71010; 76705; 78452; 93010; A9500; J2785; J1650 ×2; J7030; J0280; Q9969

== ENCOUNTER 2017-10-28 11:53 | Emergency (ER) | payer OTHER, BC ==
[2017-10-28 12:11] VITALS: BP 134/85
--- NOTE | 2017-10-28 12:44 | EKG REPORT ---
SEVERITY:- NORMAL ECG - SINUS RHYTHM : Confirmed by: Tarah Robledo MD 28-Oct-2017 12:42:59
--- NOTE | 2017-10-28 13:02 | ER Document Report ---
ED General - General Chief Complaint: Chest Pain Stated Complaint: BACK AND RIB PAIN Time Seen by Provider: 10/28/17 12:51 Mode of Arrival: Ambulatory Information source: Patient, [facility] Records Notes: This 52-year-old male patient comes emergency room complaining of onset yesterday waking up feeling on knot in his left upper lumbar back in the paravertebral area. He has had lumbar reconstructive surgery in the past and is on chronic pain management taking [place] 5 mg twice daily, Flexeril 5 mg every 8, and Neurontin 300 mg twice daily. He has noticed that the pain went from that not area and wrapping around to the left anterior ribs. Pain with movement and deep breath. He does not recall any heavy lifting straining twisting etc. in the last 1-2 weeks that could be causing his discomfort. TRAVEL OUTSIDE OF THE [place] IN LAST 30 DAYS: No - Related Data Allergies/Adverse Reactions: morphine [Morphine] Allergy (Severe, Verified 10/28/17 11:56) Respiratory arrest Home Medications: Current Home Medications Cyclobenzaprine HCl [Flexeril 10 mg Tablet] 10 mg PO BIDP PRN 10/28/17 [History] Gabapentin 0.5 tab PO BID 10/28/17 [History] Hydrocodone/Acetaminophen [[place] 5-325 mg Tablet] 1 tab PO BIDP PRN 10/28/17 [ History] Omeprazole 1 tab PO DAILY 10/28/17 [History] Sertraline HCl [Zoloft 50 mg Tablet] 150 mg PO DAILY 10/28/17 [History] Simethicone [Gas Relief] 80 mg PO DAILY 10/28/17 [History] Past Medical History - General Information source: Patient, [facility] Records - Social History Smoking Status: Former Smoker Cigarette use (# per day): No Chew tobacco use (# tins/day): No Smoking Education Provided: No Frequency of alcohol use: None Drug Abuse: None Lives with: Spouse/Significant other Family History: Hypertension, Other - Early heart attack Patient has suicidal ideation: No Patient has homicidal ideation: No - Past Medical History Cardiac Medical History: Reports: Hx Hypertension Pulmonary Medical History: Reports: Hx Bronchitis - acute bronchitis EENT Medical History: Reports: None Neurological Medical History: Reports: None Endocrine Medical History: Reports: None Renal/ Medical History: Reports: None GI Medical History: Reports: Hx Gastroesophageal Reflux Disease Musculoskeltal Medical History: Reports Other - Chronic back pain Skin Medical History: Reports None Psychiatric Medical History: Reports: Hx Depression Past Surgical History: Reports: Hx Orthopedic Surgery - r knee, lumbar back reconstruction surgery - Immunizations Hx Diphtheria, Pertussis, Tetanus Vaccination: Yes Review of Systems - Review of Systems Constitutional: No symptoms reported EENT: No symptoms reported Cardiovascular: No symptoms reported Respiratory: No symptoms reported Gastrointestinal: No symptoms reported Genitourinary: No symptoms reported Musculoskeletal: See HPI, Back pain Skin: No symptoms reported Hematologic/Lymphatic: No symptoms reported Neurological/Psychological: No symptoms reported Physical Exam - Vital signs Vitals: Temp Pulse Resp BP Pulse Ox 98.2 F 94 18 134/85 H 98 10/28/17 12:09 10/28/17 12:09 10/28/17 12:09 10/28/17 12:09 10/28/17 12:09 Interpretation: Normal - General General appearance: Appears well, Alert In distress: None - HEENT Head: Normocephalic, Atraumatic Eyes: Normal Pupils: PERRL Neck: Normal - Respiratory Respiratory status: No respiratory distress Breath sounds: Normal Chest palpation: Tender - Very tender to palpate the left anterior inferior rib margin over the ribs but not in the abdomen. The ribs are also tender as you palpate them going around to the back. There is no skin sensitivity, there is no skin rash to suggest shingles developing. - Cardiovascular Rhythm: Regular Heart sounds: Normal auscultation Murmur: No - Abdominal Inspection: Normal Tenderness: Nontender - Left upper quadrant under the rib cage is nontender. - Back Back: Tender - The left paravertebral back muscles from about T10 down to L2 region there is a palpable swelling which does not exist on the other side. Patient thinks this is new. The area is tender. I am not sure it is not a chronic finding from the surgery he has had. There is no erythema, there is no pitting, there is no fluctuance. There is some sense that this could possibly be lipoma. - Extremities General upper extremity: Normal inspection General lower extremity: Normal inspection - Neurological Neuro grossly intact: Yes - Psychological Associated symptoms: Normal affect, Normal mood Course - Re-evaluation Re-evalutation: 10/28/17 14:00 CBC, Chem-12, d-dimer, left rib x-rays are all unremarkable. - Vital Signs Vital signs: Temp Pulse Resp BP Pulse Ox 98.2 F 94 18 134/85 H 98 10/28/17 12:09 10/28/17 12:09 10/28/17 12:09 10/28/17 12:09 10/28/17 12:09 - Laboratory Result Diagrams: 10/28/17 13:10 10/28/17 13:10 Laboratory results interpreted by me: 10/28/17 10/28/17 13:10 13:10 RBC 5.92 H Hgb 17.5 H BUN 22 H Discharge - Discharge Clinical Impression: Muscle strain of chest wall Qualifiers: Encounter type: initial encounter Qualified Code(s): S29.011A - Strain of muscle and tendon of front wall of thorax, initial encounter Condition: Stable Disposition: HOME, SELF-CARE Additional Instructions: Muscle Strain: You have strained the inferior rib muscles. This often occurs with strenuous exertion, or during an injury that suddenly stretches the muscle. The seriousness of a strain varies. Some strains heal within days, others cause problems for months. X-rays cannot show a muscle strain. X-rays are taken only if symptoms suggest that a fracture could be present. The usual treatment of a muscle strain is rest and ice packs. Sometimes, a sling, splint, or crutches may be necessary to rest the muscle. The muscle can be used again once pain subsides. Severe strains require a special exercise and stretching program to prevent permanent stiffness and disability. Your doctor will advise you if this will be necessary. Call the doctor immediately if pain or swelling becomes severe, or if numbness or discoloration develop. //////////////////////////////////////////////////////////////////////////////// //////////////////////////////////////////////////////////////////////////////// Continue your regular medications including the gabapentin and Flexeril. Add the Percocet as prescribed. Take 2 Aleve twice a day, or ibuprofen 600 mg every 8 hours. Use moist heat to the painful ribs. Use your right hand and arm for any tasks. Follow-up with your primary care provider if not improving, and to evaluate the swelling over the right paravertebral muscles that was noticed today if it does not improve. RETURN TO THE EMERGENCY ROOM IF ANY NEW OR WORSENING SYMPTOMS. Prescriptions: Oxycodone HCl/Acetaminophen [Percocet 5-325 mg Tablet] 1 - 2 tab PO ASDIR PRN # 15 tablet PRN Reason:
[2017-10-28] MEDS ORDERED: OXYCODONE-ACETAMINOPHEN 5-325 MG TABLET PO ONE (13:03)
[2017-10-28 13:31] LABS: ABSOLUTE BASOPHILS # (AUTO) 0.1 10^3/uL (0.0-0.2); ABSOLUTE EOSINOPHILS # (AUTO) 0.4 10^3/uL (0.0-0.6); ABSOLUTE LYMPHOCYTES (AUTO) 1.9 10^3/uL (0.5-4.7); ABSOLUTE MONOCYTES (AUTO) 0.7 10^3/uL (0.1-1.4); ABSOLUTE NEUT (AUTO) 4.5 10^3/uL (1.7-8.2); BASOPHILS % (AUTO) 1.4 % (0-2); EOSINOPHILS % (AUTO) 4.9 % (0-6); HEMATOCRIT 49.7 % (37.9-51.0); HEMOGLOBIN 17.5 g/dL (13.5-17.0); LYMPHOCYTES % (AUTO) 25.1 % (13-45); MEAN CORPUSCULAR HEMOGLOBIN 29.6 pg (27.0-33.4); MEAN CORPUSCULAR HGB CONC 35.2 g/dL (32.0-36.0); MEAN CORPUSCULAR VOLUME 84 fl (80-97); MONOCYTES % (AUTO) 9.1 % (3-13); PLATELET COUNT 353 10^3/uL (150-450); RED BLOOD COUNT 5.92 10^6/uL (4.35-5.55); RED CELL DISTRIBUTION WIDTH 13.6 % (11.5-14.0); SEGMENTED NEUTROPHILS % (AUTO) 59.5 % (42-78); TOTAL CELLS COUNTED % (AUTO) 100 %; WHITE BLOOD COUNT 7.7 10^3/uL (4.0-10.5)
--- NOTE | 2017-10-28 13:41 | RADIOLOGY REPORT (SQ) ---
EXAM DESCRIPTION: RIBS LEFT W/PA CHEST COMPLETED DATE/TIME: 10/28/2017 1:20 pm REASON FOR STUDY: left rib pain COMPARISON: 08/16/2017 TECHNIQUE: Frontal view of the chest and additional views of the left ribs acquired. NUMBER OF VIEWS: Four view. LIMITATIONS: None. FINDINGS: FRONTAL CXR: No pneumothorax. No pleural effusion. No atelectasis or infiltrates. RIBS: No displaced rib fractures. No lytic or blastic bony lesions. OTHER: No other significant finding. IMPRESSION: NO PNEUMOTHORAX. NO DISPLACED RIB FRACTURES. COMMENT: SITE OF TRAUMA/COMPLAINT MARKED/STAMP COMPLETED: YES. TECHNICAL DOCUMENTATION: JOB ID: [id number] [employer]- All Rights Reserved
[2017-10-28 13:46] LABS: ALANINE AMINOTRANSFERASE 50 U/L (21-72); ALBUMIN 4.6 g/dL (3.5-5.0); ALKALINE PHOSPHATASE 64 U/L (38-126); ANION GAP 13 (5-19); ASPARTATE AMINO TRANSFERASE 28 U/L (17-59); BILIRUBIN,DIRECT 0.3 mg/dL (0.0-0.4); BILIRUBIN,TOTAL 0.6 mg/dL (0.2-1.3); BLOOD UREA NITROGEN 22 mg/dL (7-20); CALCIUM 10.1 mg/dL (8.4-10.2); CARBON DIOXIDE 29 mmol/L (22-30); CHLORIDE 100 mmol/L (98-107); GLUCOSE 86 mg/dL (75-110); SODIUM 142.4 mmol/L (137-145); TOTAL PROTEIN 7.5 g/dL (6.3-8.2)
[2017-10-28 14:26] LABS: APPEARANCE,URINE SLIGHTLY-CLOUDY; BILIRUBIN,URINE NEGATIVE (NEGATIVE); COLOR,URINE YELLOW; GLUCOSE, URINE NEGATIVE (NEGATIVE); KETONES,URINE NEGATIVE (NEGATIVE); LEUKOCYTE ESTERASE,URINE NEGATIVE (NEGATIVE); NITRITE,URINE NEGATIVE (NEGATIVE); PROTEIN,URINE NEGATIVE (NEGATIVE); URINE SPECIFIC GRAVITY 1.028; UROBILINOGEN,URINE NEGATIVE mg/dL (<2.0)
== END 2017-10-28 14:11 | disposition home or self-care (01) ==
LOC: ER 11:53
DX: S29.011A Strain of muscle and tendon of front wall of thorax, initial encounter (principal); R07.9 Chest pain, unspecified; G89.29 Other chronic pain; M54.6 Pain in thoracic spine; R07.81 Pleurodynia; Z79.899 Other long term (current) drug therapy; Z87.891 Personal history of nicotine dependence; X58.XXXA Exposure to other specified factors, initial encounter
CPT/HCPCS: 36415; 80053; 81001; 85025; 85379; 93005; 93010; 99285

== ENCOUNTER 2017-12-11 11:16 | Observation (INO) | payer OTHER, BC ==
[2017-12-10 09:00] LABS: HEMATOCRIT 44.7 % (37.9-51.0); HEMOGLOBIN 15.5 g/dL (13.5-17.0); MEAN CORPUSCULAR HGB CONC 34.6 g/dL (32.0-36.0); MEAN CORPUSCULAR VOLUME 84 fl (80-97); PLATELET COUNT 263 10^3/uL (150-450); RED BLOOD COUNT 5.34 10^6/uL (4.35-5.55); RED CELL DISTRIBUTION WIDTH 14.3 % (11.5-14.0); WHITE BLOOD COUNT 5.6 10^3/uL (4.0-10.5)
[2017-12-10 09:26] LABS: ALANINE AMINOTRANSFERASE 48 U/L (21-72); ALBUMIN 4.1 g/dL (3.5-5.0); ALKALINE PHOSPHATASE 48 U/L (38-126); ANION GAP 8 (5-19); ASPARTATE AMINO TRANSFERASE 24 U/L (17-59); BILIRUBIN,DIRECT 0.3 mg/dL (0.0-0.4); BILIRUBIN,TOTAL 0.8 mg/dL (0.2-1.3); BLOOD UREA NITROGEN 19 mg/dL (7-20); CALCIUM 9.6 mg/dL (8.4-10.2); CARBON DIOXIDE 30 mmol/L (22-30); CHLORIDE 102 mmol/L (98-107); GLUCOSE 129 mg/dL (75-110); POTASSIUM 4.3 mmol/L (3.6-5.0); SODIUM 140.2 mmol/L (137-145); TOTAL PROTEIN 6.6 g/dL (6.3-8.2)
--- NOTE | 2017-12-10 10:15 | EKG REPORT ---
SEVERITY:- NORMAL ECG - SINUS RHYTHM : Confirmed by: Rufina Elliott 10-Dec-2017 10:13:48
[~2017-12-11 11:16] MED LIST: CEFAZOLIN 1 GM/D5W RTU 1 GM/50 ML RTUPB IV PRN; LACTATED RINGERS 1000 ML IV PRN; LIDOCAINE 0.5% INJ-PF (5 MG/ML) 50 ML SDV SUBCUT PRN
[2017-12-18] MEDS ORDERED: LIDOCAINE 0.5% INJ-PF (5 MG/ML) 50 ML SDV SUBCUT PRN (05:00)
[2017-12-18] MEDS ORDERED: LACTATED RINGERS 1000 ML IV PRN (05:00)
[2017-12-18] MEDS ORDERED: CEFAZOLIN 1 GM/D5W RTU 1 GM/50 ML RTUPB IV PRN (05:00)
[2017-12-18] MEDS ORDERED: BUPIVACAINE HCL 0.25 % INJ/PF (2.5 MG/1 ML) 30 ML VIAL ONE (11:18)
[2017-12-18] MEDS ORDERED: SUCCINYLCHOLINE CHLORIDE INJ 200 MG/10 ML VIAL ONE (14:33)
[2017-12-18] MEDS ORDERED: VECURONIUM BROMIDE INJ 10 MG VIAL IV ONE (14:33)
[2017-12-18] MEDS ORDERED: NEOSTIGMINE METHYLSULFATE 10 MG/10 ML VIAL ONE (14:33)
[2017-12-18] MEDS ORDERED: GLYCOPYRROLATE INJ 0.4 MG/2 ML VIAL ONE (14:33)
[2017-12-18] MEDS ORDERED: DEXAMETHASONE SOD PHOSPHATE INJ 4 MG/1 ML VIAL ONE (15:21)
[2017-12-18] MEDS ORDERED: MIDAZOLAM 2 MG/2 ML INJ ONE (15:21)
[2017-12-18] MEDS ORDERED: FENTANYL CITRATE INJ/PF 100 MCG/2 ML AMPUL ONE (15:21)
[2017-12-18] MEDS ORDERED: LIDOCAINE 2% INJ-PF (20 MG/ML) 10 ML AMPUL ONE (15:21)
[2017-12-18] MEDS ORDERED: ACETAMINOPHEN 100 ML IV ONE (15:22)
[2017-12-18] MEDS ORDERED: PROPOFOL INJ 200 MG/20 ML VIAL IV ONE (15:22)
[2017-12-18] MEDS ORDERED: ONDANSETRON HCL INJ/PF 4 MG/2 ML SDV ONE ×2 (15:22→18:17)
[2017-12-18] MEDS ORDERED: MEPERIDINE HCL/PF INJ 25 MG/1 ML DISP.SYRIN IV PRN (16:04)
[2017-12-18] MEDS ORDERED: PROMETHAZINE HCL INJ 25 MG/1 ML VIAL IV PRN ×2 (16:04)
[2017-12-18] MEDS ORDERED: ONDANSETRON HCL INJ/PF 4 MG/2 ML SDV IV PRN (16:04)
[2017-12-18] MEDS ORDERED: DIPHENHYDRAMINE HCL 50 MG/ML VIAL IV PRN (16:04)
[2017-12-18] MEDS ORDERED: FENTANYL CITRATE INJ/PF 100 MCG/2 ML AMPUL IV PRN ×4 (16:04→21:45)
--- NOTE | 2017-12-18 17:06 | Operative Report ---
Operative Report DATE OF SURGERY: 12/18/17 PREOPERATIVE DIAGNOSIS: Symptomatic gallstones. Umbilical hernia. POSTOPERATIVE DIAGNOSIS: Symptomatically gallstones. Umbilical hernia. OPERATION: Laparoscopic cholecystectomy SURGEON: CARLYLE JACKSON ANESTHESIA: GA TISSUE REMOVED OR ALTERED: Gallbladder COMPLICATIONS: None ESTIMATED BLOOD LOSS: Minimal INTRAOPERATIVE FINDINGS: 1 cm umbilical hernia fascia defect PROCEDURE: Informed consent was obtained. Patient was brought to the operating room placed operating table in supine position. After satisfactory induction of general anesthesia, patient's abdomen was prepped and draped in usual sterile fashion. A semi-circular infraumbilical periumbilical incision was made and dissection was carried down and the bellybutton was dissected away from the underlying hernia. The hernia sac was dissected away from the surrounding structures and it was opened. The hernia defect measured about a centimeter in size. Hernia repair was performed at the very end of the case using interrupted Ethibond sutures closing the defect in a transverse direction. The hernia repair came together well without tension. Through this defect Lora trocar was inserted. Pneumoperitoneum produced good patient toleration. 5 mm trocar was placed in the subxiphoid location.Two 5 mm trochars were placed in the right subcostal location. The gallbladder was grasped and retracted cephalad over the dome of the liver. The infundibulum of the gallbladder was grasped retracted laterally and inferiorly thus exposing calot's triangle. There was a fatty tissue overlying Calot's triangle and the lymphatics of Calot' s node was taken by clipping and dividing. The cystic duct gallbladder junction was clearly identified and the cystic duct was clipped and divided. Cystic artery was likewise taken. The gallbladder was taken off the gallbladder bed using the hook electrocautery technique. The gallbladder was removed with an Endobag through the Lora trocar site fascial defect. Hemostasis appeared excellent. Operative field was lightly irrigated and irrigant aspirated out. Irrigation fluid was perfectly clear at the end of the case. All trochars were removed under the direct vision a laparoscope to ensure hemostasis. The umbilical hernia fascial defect was repaired as mentioned above. The bellybutton was tacked to the underlying fascia using an interrupted Vicryl suture. All skin incisions were closed with subcuticular interrupted Monocryl sutures. Marcaine was injected at the port sites. Patient tolerated procedure well no apparent complications and was taken to the recovery area in stable condition.
[2017-12-18] MEDS ORDERED: RINGERS SOLUTION,LACTATED 1,000 ML IV PRN (17:09)
[2017-12-18] MEDS ORDERED: OXYCODONE-ACETAMINOPHEN 5-325 MG TABLET PO PRN ×2 (17:09→21:01)
--- NOTE | 2017-12-18 17:09 | PDOC DISCHARGE SUMMARY ---
Discharge Summary (SDC) - Discharge Final Diagnosis: Symptomatic gallstones, umbilical hernia. Date of Surgery: 12/18/17 Discharge Date: 12/18/17 Condition: Good Treatment or Instructions: Laparoscopic cholecystectomy and umbilical hernia repair. May discharge patient home when met discharge criteria. Follow-up with me in 2 weeks. Stay active but avoid strenuous activity. May shower in 2 days. Prescriptions: Oxycodone HCl/Acetaminophen [Percocet 5-325 mg Tablet] 1 tab PO ASDIR PRN #15 tab PRN Reason: Referrals: ANGELES VALLADARES MD [Primary Care Provider] - Discharge Diet: As Tolerated Discharge Activity: Activity As Tolerated - Stay active but avoid strenuous activity. Report the Following to Your Physician Immediately: Yellow Skin, Fever over 101 Degrees, Unusual Bleeding, Redness, Drainage-Foul Smelling
[2017-12-18] MEDS: FENTANYL CITRATE INJ/PF 100 MCG/2 ML AMPUL ONE ×2 (17:25→17:30)
[2017-12-18] MEDS ORDERED: METOCLOPRAMIDE HCL INJ/PF 10 MG/2 ML SDV ONE (18:17)
[2017-12-18] MEDS ORDERED: PROMETHAZINE HCL INJ 25 MG/1 ML VIAL ONE (18:37)
[2017-12-18] MEDS: NITROGLYCERIN 0.4 MG/TAB 25 TAB/BOTTLE SL ONE ×3 (20:00→22:26)
[2017-12-18] MEDS ORDERED: NITROGLYCERIN 0.4 MG/TAB 25 TAB/BOTTLE ONE (20:00)
[2017-12-18] MEDS: METOPROLOL TARTRATE 25 MG TABLET PO ONE ×2 (20:15→22:26)
[2017-12-18] MEDS: SIMETHICONE 80 MG TAB.CHEW PO ONE ×2 (20:15→22:26)
[2017-12-18 20:43] LABS: CREATINE KINASE MB 0.88 ng/mL (<4.55)
[2017-12-18 20:50] LABS: TROPONIN I < 0.012 ng/mL
[2017-12-18] MEDS ORDERED: GLUCAGON,HUMAN RECOMB 1 MG INJ SUBCUT PRN (20:50)
[2017-12-18] MEDS ORDERED: ONDANSETRON 4 MG TAB.RAPDIS PO PRN (20:50)
[2017-12-18] MEDS ORDERED: DEXTROSE 40% GEL 15 GM TUBE PO PRN ×2 (20:50)
[2017-12-18] MEDS ORDERED: DEXTROSE 50%-WATER 25 GM/50 ML DISP.SYRIN IV PRN ×2 (20:50)
--- NOTE | 2017-12-18 20:50 | PDOC PROGRESS REPORT ---
Subjective Progress Note for:: 12/18/17 Subjective:: At outpatient surgery recovery room patient complained of substernal pressure- like chest pain. Patient had some diminishment with nitroglycerin. He never has shortness of breath. He denies any abdominal pain. Denies any nausea or vomiting at this time. Patient notes that he had a similar episode of the symptoms back in July and it was attributed to gallbladder at that time. He had underwent a stress test that was negative for cardiac ischemia. Patient feels much more comfortable now. He still has some residual chest pressure discomfort centered at the xiphoid region. Patient's vital signs have been stable and he has had no desaturations. He denies any prolonged bed rest in the last few weeks. He denies any long travel in the past few days. Reason For Visit: K80.20 CALCULUS OF GALLBLADDER W/O CHOLECYS, K42.9 Physical Exam Vital Signs: Temp Pulse Resp BP Pulse Ox 97.3 F 69 16 103/62 94 12/18/17 20:15 12/18/17 20:21 12/18/17 20:21 12/18/17 20:21 12/18/17 20:21 Intake & Output 12/17/17 12/18/17 12/19/17 06:59 06:59 06:59 Intake Total 3100 Output Total 1020 Balance 2080 Weight 93.44 kg General appearance: PRESENT: no acute distress, cooperative Respiratory exam: PRESENT: clear to auscultation luis Cardiovascular exam: PRESENT: RRR GI/Abdominal exam: PRESENT: other - Soft, mildly distended, minimal tenderness. Extremities exam: PRESENT: other - No swelling and no tenderness. Results Laboratory Results: 12/10/17 08:25 12/18/17 12:02 12/18/17 12:02 Potassium 4.1 12/18/17 20:10 Creatine Kinase 66 Assessment & Plan - Diagnosis (1) Chest pain Qualifiers: Chest pain type: unspecified Qualified Code(s): R07.9 - Chest pain, unspecified Is this a current diagnosis for this admission?: Yes Plan: Substernal chest pain status post laparoscopic cholecystectomy. Will admit the patient on telemetry bed for observation overnight. Will check cardiac enzymes. Initial enzymes were negative and EKG was initially negative for evidence of ischemia. Chest x-ray appears unremarkable. Symptoms may be related with residual pneumoperitoneum and/or air swallowed during intubation in the presence of a Lius fundoplication. Will obtain hospitalist consultation. Keep patient n.p.o. while he has his symptoms.
[2017-12-18] MEDS ORDERED: CYCLOBENZAPRINE HCL 10 MG TABLET PO PRN (21:03)
[2017-12-18] MEDS ORDERED: NITROGLYCERIN 0.4 MG/TAB 25 TAB/BOTTLE SL PRN ×2 (21:03→21:21)
[2017-12-18] MEDS ORDERED: MECLIZINE HCL 25 MG TABLET PO PRN (21:03)
--- NOTE | 2017-12-18 21:09 | RADIOLOGY REPORT (SQ) ---
EXAM DESCRIPTION: CHEST SINGLE VIEW COMPLETED DATE/TIME: 12/18/2017 8:31 pm REASON FOR STUDY: CHEST PAIN - POST OP COMPARISON: 08/16/2017 EXAM PARAMETERS: NUMBER OF VIEWS: One view. TECHNIQUE: Single frontal radiographic view of the chest acquired. RADIATION DOSE: NA LIMITATIONS: None. FINDINGS: LUNGS AND PLEURA: No acute opacities, masses or pneumothorax. No pleural effusion. MEDIASTINUM AND HILAR STRUCTURES: No masses. Contour normal. HEART AND VASCULAR STRUCTURES: Heart normal in size. Normal vasculature. BONES: No acute findings. HARDWARE: None in the chest. OTHER: No other significant finding. IMPRESSION: NO ACUTE RADIOGRAPHIC FINDING IN THE CHEST. TECHNICAL DOCUMENTATION: JOB ID: [id number] [place]-72 2010 [employer]- All Rights Reserved
[2017-12-18] MEDS ORDERED: NORMAL SALINE 500 ML IV ONE (21:30)
[2017-12-18] MEDS ORDERED: SIMETHICONE 80 MG TAB.CHEW PO ONE (21:30)
[2017-12-18] MEDS ORDERED: ASPIRIN 325 MG TABLET PO ONE (21:30)
[2017-12-18] MEDS ORDERED: (PENDING PHARMACY ID) (Docusate Calcium [Stool Softener] 240 MG) PO SCH (22:00)
[2017-12-18] MEDS ORDERED: DOCUSATE SODIUM 100 MG CAPSULE PO SCH (22:00)
[2017-12-18 22:14] LABS: ALANINE AMINOTRANSFERASE 119 U/L (21-72); ALBUMIN 3.4 g/dL (3.5-5.0); ALKALINE PHOSPHATASE 37 U/L (38-126); ANION GAP 7 (5-19); ASPARTATE AMINO TRANSFERASE 82 U/L (17-59); BILIRUBIN,DIRECT 0.4 mg/dL (0.0-0.4); BILIRUBIN,TOTAL 0.7 mg/dL (0.2-1.3); BLOOD UREA NITROGEN 17 mg/dL (7-20); CALCIUM 8.5 mg/dL (8.4-10.2); CARBON DIOXIDE 27 mmol/L (22-30); CHLORIDE 104 mmol/L (98-107); GLUCOSE 133 mg/dL (75-110); POTASSIUM 4.4 mmol/L (3.6-5.0); SODIUM 138.2 mmol/L (137-145); TOTAL PROTEIN 5.8 g/dL (6.3-8.2)
[2017-12-18] MEDS: GABAPENTIN 300 MG CAPSULE PO SCH (22:41)
[2017-12-18] MEDS: HYDROCODONE/ACETAMINOPHEN 5-325 MG TABLET PO PRN (22:41)
[2017-12-18] MEDS: METOPROLOL TARTRATE 25 MG TABLET PO SCH (23:47)
--- NOTE | 2017-12-19 02:16 | PDOC CONSULTATION ---
Consultation Consult Date: 12/18/17 Attending physician:: CARLYLE JACKSON Consult reason:: Chest pain post-op day zero. History of Present Illness Admission Date/PCP: ANGELES VALLADARES MD Patient complains of: Chest pain postop day zero. History of Present Illness: STEPHANIE GAMEZ is a 52 year old male history of TIA, hypertension and GERD was admitted to the surgical service post lap cholecystectomy (for chronic cholecystitis) and umbilical hernia repair. The hospitalist's service was consulted since the patient complained of chest pain postop. He also had a hypotensive episode with his systolic blood pressure down to the 80s and he was hypoxic with oxygen saturation down to the 80s requiring 2.5 L of oxygen via nasal cannula. The patient described his chest pain as pressure-like, localized to his anterior chest wall with no radiation. It was 8/10 in intensity which improved to 5/10 intensity after 2 sublingual nitros. He said that he felt somewhat nauseous but denied any shortness of breath, diaphoresis, palpitations, dizziness or lightheadedness or any syncope. He also denied any recent fever or chills or any cough or sick contacts. He apparently had similar chest pain in july 2017 and had an echocardiogram and nuclear stress test done which were reportedly negative per patient. His chest pain at that time was attributed to possibly gallbladder issues. He had some abdominal pain but denied any diarrhea or constipation. He complained of difficulty urinating but no dysuria or hematuria. According to his , he does not hydrate himself properly. He denied any focal weakness/ numbness. On admission, his temperature was 98.4, heart rate 71, respiratory rate 18, blood pressure 119/63 with oxygen saturation of 94% on 2.5 L nasal cannula. His troponin x1 and CXR are pending. He received 25 mg metoprolol 1, simethicone 80 mg 1 in addition to 2 sublingual nitros. He also was given a 500 cc bolus of normal saline and was started on NS @ 125 ml/hr while in PACU. His chest pain is currently improved Past Medical History Cardiac Medical History: Reports: Hypertension, Other - Angina Denies: Coronary Artery Disease, Myocardial Infarction Pulmonary Medical History: Reports: Bronchitis - acute bronchitis Denies: Asthma, Chronic Obstructive Pulmonary Disease (COPD), Pneumonia Neurological Medical History: Reports: Other - TIA Denies: Seizures GI Medical History: Reports: Gastroesophageal Reflux Disease, Other - chronic cholecystitis. Musculoskeltal Medical History: Denies: Arthritis Psychiatric Medical History: Reports: Depression Hematology: Denies: Anemia Past Surgical History Past Surgical History: Reports: Orthopedic Surgery - r knee, lumbar back reconstruction surgery Social History Smoking Status: Former Smoker Cigarettes Packs Per Day: 1 Number of Years Smokin - Quit in 1997 Frequency of Alcohol Use: Heavy - Beer and hard liquor for about 10 years. He quit in 1989. Hx Recreational Drug Use: No Drugs: None Hx Prescription Drug Abuse: No Family History Family History: Hypertension, Other - Early heart attack Parental Family History Reviewed: Yes - Father: CABG 5. Paternal grandfather [place] at 60 Children Family History Reviewed: No Sibling(s) Family History Reviewed.: Yes Medication/Allergy Home Medications: Amlodipine Besylate [Norvasc 10 mg Tablet] 10 mg PO DAILY 12/18/17 Aspirin [Aspirin EC] 81 mg PO DAILY 12/18/17 Cetirizine HCl [Zyrtec] 10 mg PO DAILY 12/18/17 Cyclobenzaprine HCl [Flexeril 10 mg Tablet] 10 mg PO BIDP PRN 12/18/17 Docusate Calcium [Stool Softener] 240 mg PO HSP PRN 12/18/17 Gabapentin [Neurontin 300 mg Capsule] 300 mg PO Q12 12/18/17 Hydrochlorothiazide [Hydrodiuril 25 mg Tablet] 25 mg PO DAILY 12/18/17 Hydrocodone/Acetaminophen [Jenkinjones 5-325 mg Tablet] 1 tab PO BIDP PRN 12/18/17 Losartan Potassium [Cozaar 100 mg Tablet] 100 mg PO DAILY 12/18/17 Meclizine HCl [Antivert 25 mg Tablet] 25 mg PO TIDP PRN 12/18/17 Metoprolol Tartrate [Lopressor 25 mg Tablet] 25 mg PO Q12 12/18/17 Nitroglycerin [Nitrostat 0.4 mg (1/150 Gr) Tabs 25/Bottle] 1 tab SL Q5MP PRN Omeprazole 20 mg PO DAILY 12/18/17 Sertraline HCl [Zoloft 50 mg Tablet] 150 mg PO DAILY 12/18/17 Simethicone 80 mg PO DAILYP PRN 12/18/17 Allergies/Adverse Reactions: morphine [Morphine] Allergy (Severe, Verified 12/19/17 01:39) Respiratory arrest Review of Systems Constitutional: PRESENT: weight gain, weight loss. ABSENT: chills, fever(s), headache(s) Eyes: ABSENT: visual disturbances Ears: ABSENT: hearing changes Cardiovascular: PRESENT: chest pain, orthropnea. ABSENT: edema, palpitations Respiratory: PRESENT: hemoptysis. ABSENT: cough Gastrointestinal: PRESENT: hematemesis, hematochezia. ABSENT: abdominal pain, constipation, diarrhea, nausea, vomiting Genitourinary: ABSENT: dysuria, hematuria Musculoskeletal: ABSENT: joint swelling Integumentary: ABSENT: rash, wounds Neurological: ABSENT: abnormal gait, abnormal speech, confusion, dizziness, focal weakness, syncope Psychiatric: ABSENT: anxiety, depression, homidical ideation, suicidal ideation Endocrine: PRESENT: cold intolerance, heat intolerance, polydipsia, polyuria Hematologic/Lymphatic: PRESENT: easy bleeding, easy bruising Physical Exam Vital Signs: Temp Pulse Resp BP Pulse Ox 98.4 F 71 18 119/63 94 12/18/17 21:06 12/18/17 21:06 12/18/17 21:06 12/18/17 21:06 12/19/17 01:04 Pulse Oximeter Continuous Start: 12/18/17 23: 17 Freq: RTQ4 Status: Active Document 12/19/17 01:04 EA (Rec: 12/19/17 01:05 EA [email or web address]) Pulse Oximetry Assessment Oxygen Saturation (92-100) 94 Oxygen Flow Rate (L/min) 2.5 Oxygen Delivery Method Nasal Cannula Fraction of Inspired Oxygen (FIO2) 30 Equipment Usage Initial Set Up Continuous Pulse Oximeter 24 Hour Charge Charge Now Continuous SpO2 Machine # 13 Intake & Output 12/17/17 12/18/17 12/19/17 06:59 06:59 06:59 Intake Total 3600 Output Total 1020 Balance 2580 Weight 90.1 kg General appearance: PRESENT: no acute distress, well-developed, well-nourished Head exam: PRESENT: atraumatic, normocephalic Eye exam: PRESENT: conjunctiva pink, PERRLA. ABSENT: scleral icterus Ear exam: PRESENT: normal external ear exam Mouth exam: PRESENT: moist, tongue midline Neck exam: PRESENT: carotid bruit, lymphadenopathy, thyromegaly. ABSENT: JVD Respiratory exam: PRESENT: clear to auscultation luis. ABSENT: rales, rhonchi, wheezes Cardiovascular exam: PRESENT: RRR, rubs, other - S1-S2 normal.. ABSENT: diastolic murmur, systolic murmur Pulses: PRESENT: normal dorsalis pedis pul Vascular exam: PRESENT: normal capillary refill GI/Abdominal exam: PRESENT: normal bowel sounds - Decreased., soft. ABSENT: distended, organolmegaly, tenderness Rectal exam: PRESENT: deferred Extremities exam: PRESENT: full ROM. ABSENT: calf tenderness, pedal edema Neurological exam: PRESENT: alert, awake, oriented to person, oriented to place , oriented to time, oriented to situation, motor sensory deficit Psychiatric exam: PRESENT: appropriate affect, normal mood. ABSENT: homicidal ideation, suicidal ideation Skin exam: PRESENT: dry, intact, warm. ABSENT: cyanosis, rash Results Laboratory Results: 12/10/17 08:25 12/18/17 21:50 12/18/17 12/18/17 12:02 21:50 Sodium 138.2 Potassium 4.1 4.4 Chloride 104 Carbon Dioxide 27 Anion Gap 7 BUN 17 Creatinine 0.79 Est GFR ( Amer) > 60 Est GFR (Non-Af Amer) > 60 Glucose 133 H Calcium 8.5 Total Bilirubin 0.7 AST 82 H ALT 119 H Alkaline Phosphatase 37 L Total Protein 5.8 L Albumin 3.4 L 12/18/17 12/18/17 12/18/17 20:10 20:10 21:50 Creatine Kinase 66 CK-MB (CK-2) 0.88 Troponin I < 0.012 < 0.012 EKG Comments: Twelve-lead EKG: Sinus rhythm, ventricular rate 70, axis +20, Q wave in lead III seems to be more pronounced when compared to previous 12-lead EKG done on . Impressions: Chest X-Ray 12/18/17 00:00 IMPRESSION: NO ACUTE RADIOGRAPHIC FINDING IN THE CHEST. Assessment & Plan - Diagnosis (1) Chest pain Qualifiers: Chest pain type: unspecified Qualified Code(s): R07.9 - Chest pain, unspecified Is this a current diagnosis for this admission?: Yes Plan: Possibly cardiac. His troponin is still pending. His 12-lead EKG showed more prominent Q waves in leads III when compared to previous EKGs. His chest x-ray was unremarkable. We will continue to cycle cardiac enzymes and repeat 12-lead EKG. According to the patient, he had similar chest pain in July 2017 and he had an echocardiogram and a nuclear stress test done at this hospital which were reportedly negative per patient (Unable to view the reports at this time). Will continue metoprolol and hold off on aspirin for now until okay with surgery. The patient may benefit from further cardiac evaluation while hospitalized. (2) Essential hypertension Is this a current diagnosis for this admission?: No Plan: The patient actually had a hypotensive episode while in OR which improved with 500 cc bolus of normal saline. We will continue to monitor overnight and resume his blood pressure medications as indicated. (3) Hypoxemia Is this a current diagnosis for this admission?: Yes Plan: unclear etiology, possibly cardiac or questionable PE. He is an ex-smoker but does not carry any COPD diagnosis. His chest x-ray was negative. Will continue to cycle cardiac enzymes and repeat a 12-lead EKG. Of note, he had a recent nuclear stress test in July of 2017 which was reportedly negative per patient. Will check DDimer (although it may be elevated after surgery) and order CTA chest if indicated. (4) Chronic cholecystitis Is this a current diagnosis for this admission?: Yes Plan: Post lap amanda and umbilical hernia repair. Further management per primary team. Thank you very much for allowing me to participate in taking care of this patient. Will follow up with you. - Time Time Spent: 50 to 70 Minutes Medications reviewed and adjusted accordingly: Yes Anticipated discharge: Home
[2017-12-19] MEDS: NORMAL SALINE 1000 ML 1,000 ML IV PRN ×2 (02:33→10:55)
[2017-12-19 03:53] LABS: HEMATOCRIT 40.3 % (37.9-51.0); HEMOGLOBIN 14.1 g/dL (13.5-17.0); MEAN CORPUSCULAR HEMOGLOBIN 29.5 pg (27.0-33.4); MEAN CORPUSCULAR VOLUME 84 fl (80-97); PLATELET COUNT 259 10^3/uL (150-450); RED BLOOD COUNT 4.79 10^6/uL (4.35-5.55); WHITE BLOOD COUNT 9.8 10^3/uL (4.0-10.5)
[2017-12-19] MEDS ORDERED: LANSOPRAZOLE 15 MG TAB.RAP.DR PO SCH (06:00)
[2017-12-19] MEDS ORDERED: HYDROCHLOROTHIAZIDE 25 MG TABLET PO SCH (08:00)
--- NOTE | 2017-12-19 08:00 | EKG REPORT ---
SEVERITY:- NORMAL ECG - SINUS RHYTHM : Confirmed by: Reji Nguyen MD 19-Dec-2017 08:00:05
--- NOTE | 2017-12-19 08:01 | EKG REPORT ---
SEVERITY:- NORMAL ECG - SINUS RHYTHM : Confirmed by: Reji Nguyen MD 19-Dec-2017 08:00:18
--- NOTE | 2017-12-19 09:18 | PDOC PROGRESS REPORT ---
Subjective Progress Note for:: 12/19/17 Subjective:: Feels much better this morning. Minimal abdominal discomfort. Chest pain has completely resolved. Reason For Visit: K80.20 CALCULUS OF GALLBLADDER W/O CHOLECYS, K42.9 Physical Exam Vital Signs: Temp Pulse Resp BP Pulse Ox 97.9 F 68 18 110/66 95 12/19/17 02:00 12/19/17 07:00 12/19/17 02:00 12/19/17 02:00 12/19/17 04:00 Pulse Oximeter Continuous Start: 12/18/17 23: 17 Freq: RTQ4 Status: Active Document 12/19/17 04:00 SFL (Rec: 12/19/17 07:12 SFL [email or web address]) Pulse Oximetry Assessment Oxygen Saturation (92-100) 95 Oxygen Flow Rate (L/min) 2 Oxygen Delivery Method Nasal Cannula Equipment Usage Equipment in Use Continuous SpO2 Machine # 13 Intake & Output 12/18/17 12/19/17 12/20/17 06:59 06:59 06:59 Intake Total 3600 Output Total 1020 Balance 2580 Weight 90.1 kg General appearance: PRESENT: no acute distress, cooperative Respiratory exam: PRESENT: clear to auscultation luis Cardiovascular exam: PRESENT: RRR GI/Abdominal exam: PRESENT: other - Soft, nondistended, nontender to palpation. Extremities exam: PRESENT: other - No swelling. No tenderness. Results Laboratory Results: 12/19/17 03:45 12/18/17 21:50 12/18/17 12/18/17 12/19/17 12:02 21:50 03:45 WBC 9.8 RBC 4.79 Hgb 14.1 Hct 40.3 MCV 84 MCH 29.5 MCHC 35.0 RDW 14.0 Plt Count 259 Sodium 138.2 Potassium 4.1 4.4 Chloride 104 Carbon Dioxide 27 Anion Gap 7 BUN 17 Creatinine 0.79 Est GFR ( Amer) > 60 Est GFR (Non-Af Amer) > 60 Glucose 133 H Calcium 8.5 Total Bilirubin 0.7 AST 82 H ALT 119 H Alkaline Phosphatase 37 L Total Protein 5.8 L Albumin 3.4 L 12/18/17 12/18/17 12/18/17 20:10 20:10 21:50 Creatine Kinase 66 CK-MB (CK-2) 0.88 Troponin I < 0.012 < 0.012 12/19/17 03:45 Creatine Kinase CK-MB (CK-2) Troponin I < 0.012 Impressions: Chest X-Ray 12/18/17 00:00 IMPRESSION: NO ACUTE RADIOGRAPHIC FINDING IN THE CHEST. Assessment & Plan - Diagnosis (1) Chest pain Qualifiers: Chest pain type: unspecified Qualified Code(s): R07.9 - Chest pain, unspecified Is this a current diagnosis for this admission?: Yes Plan: Substernal chest pain status post laparoscopic cholecystectomy. Chest pain has resolved. His cardiac enzymes are negative. Will obtain a cardiology consultation prior to discharge. We will keep the patient n.p.o. just in case they want to do a stress test. If cardiology clears him to be discharged, will plan to discharge patient home today.
[2017-12-19] MEDS ORDERED: ASPIRIN 325 MG TABLET PO SCH (10:00)
[2017-12-19] MEDS ORDERED: ENOXAPARIN SODIUM INJ 40 MG/0.4 ML DISP.SYRIN SUBCUT SCH (10:00)
[2017-12-19] MEDS ORDERED: CETIRIZINE 10 MG TABLET PO SCH ×2 (10:00)
[2017-12-19] MEDS ORDERED: GABAPENTIN PO SCH (10:00)
[2017-12-19] MEDS ORDERED: (PENDING PHARMACY ID) (Omeprazole [Omeprazole] 1 TAB) PO SCH (10:00)
[2017-12-19] MEDS ORDERED: AMLODIPINE BESYLATE 10 MG TABLET PO SCH (10:00)
[2017-12-19] MEDS ORDERED: SIMETHICONE 80 MG TAB.CHEW PO SCH (10:00)
[2017-12-19] MEDS ORDERED: LOSARTAN POTASSIUM 50 MG TABLET PO SCH (10:00)
[2017-12-19] MEDS ORDERED: SERTRALINE HCL 50 MG TABLET PO SCH (10:00)
[2017-12-19] MEDS ORDERED: ASPIRIN 81 MG TABLET, ENT COATED PO SCH (10:00)
[2017-12-19 10:37] LABS: CHOLESTEROL 174.02 mg/dL (0-200); TRIGLYCERIDES 34 mg/dL (<150)
[2017-12-19] MEDS: METOPROLOL TARTRATE 25 MG TABLET PO SCH (10:40)
[2017-12-19] MEDS: GABAPENTIN 300 MG CAPSULE PO SCH (10:41)
[2017-12-19 10:48] LABS: DIRECT LDL 130 mg/dL (<100)
[2017-12-19] MEDS: HYDROCODONE/ACETAMINOPHEN 5-325 MG TABLET PO PRN (10:51)
[2017-12-19] MEDS ORDERED: LANSOPRAZOLE 30 MG TAB.RAP.DR PO ONE (15:58)
--- NOTE | 2017-12-19 16:00 | Progress Note ---
Provider Note Provider Note: Patient seen and examined today. Patient had chest pain last night. Subsequent EKGs and cardiac enzymes has come back normal. Patient gives history of esophageal reflux and is status post Luis fundoplication surgery. Patient did have a nuclear stress test within the last 6 months which was reported to be negative. Patient just had a 2D echocardiogram performed which shows normal LVEF and no significant wall motion abnormalities or valvular disease. Recommend 81 mg aspirin p.o. daily, metoprolol succinate 25 mg p.o. twice daily , Lipitor 10 mg p.o. nightly. Continue home antihypertensives. 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 A full report will follow. Patient can follow-up with me if he wishes.
[2017-12-19] MEDS ORDERED: ACETAMINOPHEN 325 MG TABLET ONE (17:32)
[2017-12-19] MEDS ORDERED: ACETAMINOPHEN 325 MG TABLET PO ONE (17:45)
[2017-12-19] MEDS ORDERED: METOPROLOL SUCCINATE 25 MG TAB.SR.24H PO SCH (18:00)
[2017-12-19 18:37] VITALS: BP 122/71
--- NOTE | 2017-12-19 19:44 | XCELERA REPORT ---
[address] [address] Transthoracic Echocardiogram Report Name: STEPHANIE GAMEZ Age: 52 yrs Gender: Male : 1965 Patient Status: Outpatient Patient Location: [address] [place] [address] Study Date: 12/19/2017 02:41 PM Height: 70 in Weight: 198 lb BSA: 2.1 m2 Procedure: A complete two-dimensional transthoracic echocardiogram was performed (2D, M-mode, spectral and color flow Doppler). The study was technically adequate with some images being suboptimal in quality. Reason For Study: CP Ordering Physician: RUFINA TRIVEDI Performed By: Nakia Ruano Interpretation Summary The left ventricular ejection fraction is normal. Doppler measurements suggest impaired left ventricular relaxation, which is associated with grade I/IV or mild diastolic dysfunction There is borderline concentric left ventricular hypertrophy. The left ventricle is grossly normal size. No regional wall motion abnormalities noted. The right ventricular systolic function is normal. The right atrium is normal in size The left atrium is borderline dilated. There is no mitral valve stenosis. There is a mild amount of mitral regurgitation There is no aortic valve stenosis No aortic regurgitation is present. There is a trace or physiologic amount of tricuspid regurgitation Tricuspid regurgitation jet envelope not well defined to measure RV systolic pressure accurately. The aortic root is not well visualized but is probably normal size. The inferior vena cava was not well visualized There is no pericardial effusion. MMode/2D Measurements & Calculations RVDd: 3.1 cm LVIDd: 5.2 cm FS: 31.8 % Ao root diam: 2.9 cm IVSd: 0.89 cm LVIDs: 3.5 cm EDV(Teich): 127.2 ml LVPWd: 0.91 cm ESV(Teich): 51.5 ml Ao root area: 6.6 cm2 EF(Teich): 59.5 % LA dimension: 3.9 cm Doppler Measurements & Calculations MV E max analy: MV P1/2t max analy: Ao V2 max: LV V1 max P.8 cm/sec 93.3 cm/sec 108.0 cm/sec 3.0 mmHg MV A max analy: MV P1/2t: 57.3 msec Ao max PG: LV V1 max: 71.6 cm/sec 4.7 mmHg 85.9 cm/sec MV E/A: 1.3 MVA(P1/2t): 3.8 cm2 MV dec slope: 476.6 cm/sec2 MV dec time: 0.19 sec PA V2 max: TR max analy: 82.9 cm/sec 206.3 cm/sec PA max PG: TR max P.0 mmHg 2.8 mmHg Left Ventricle The left ventricle is grossly normal size. There is borderline concentric left ventricular hypertrophy. The left ventricular ejection fraction is normal. Doppler measurements suggest impaired left ventricular relaxation, which is associated with grade I/IV or mild diastolic dysfunction. No regional wall motion abnormalities noted. Right Ventricle The right ventricle is grossly normal size. There is normal right ventricular wall thickness. The right ventricular systolic function is normal. Atria The right atrium is normal in size. The left atrium is borderline dilated. Interarterial septum not well visualized and not well dopplered. Cannot comment on ASD/PFO presence. Mitral Valve The mitral valve is grossly normal. There is no mitral valve stenosis. There is a mild amount of mitral regurgitation. Aortic Valve The aortic valve is grossly normal. There is no aortic valve stenosis. No aortic regurgitation is present. Tricuspid Valve The tricuspid valve is not well visualized, but is grossly normal. There is no tricuspid stenosis. There is a trace or physiologic amount of tricuspid regurgitation. Tricuspid regurgitation jet envelope not well defined to measure RV systolic pressure accurately. Pulmonic Valve The pulmonic valve is not well visualized. Great Vessels The aortic root is not well visualized but is probably normal size. The inferior vena cava was not well visualized. Effusions There is no pericardial effusion. : RUFINA TRIVEDI > Rufina Trivedi
--- NOTE | 2017-12-19 20:18 | PDOC CONSULTATION ---
Consultation Consult Date: 12/19/17 Attending physician:: CARLYLE JACKSON Consult reason:: Chest pain History of Present Illness Admission Date/PCP: ANGELES VALLADARES MD Patient complains of: Chest pain History of Present Illness: STEPHANIE GAMEZ is a 52 year old male history of TIA, hypertension and GERD was admitted to the surgical service post lap cholecystectomy (for chronic cholecystitis) and umbilical hernia repair. The hospitalist's service was consulted since the patient complained of chest pain postop. He also had a hypotensive episode with his systolic blood pressure down to the 80s and he was hypoxic with oxygen saturation down to the 80s requiring 2.5 L of oxygen via nasal cannula. The patient described his chest pain as pressure-like, localized to his anterior chest wall with no radiation. It was 8/10 in intensity which improved to 5/10 intensity after 2 sublingual nitros. He said that he felt somewhat nauseous but denied any shortness of breath, diaphoresis, palpitations, dizziness or lightheadedness or any syncope. He also denied any recent fever or chills or any cough or sick contacts. He apparently had similar chest pain in july 2017 and had an echocardiogram and nuclear stress test done which were reportedly negative per patient. His chest pain at that time was attributed to possibly gallbladder issues. He had some abdominal pain but denied any diarrhea or constipation. He complained of difficulty urinating but no dysuria or hematuria. According to his , he does not hydrate himself properly. He denied any focal weakness/ numbness. On admission, his temperature was 98.4, heart rate 71, respiratory rate 18, blood pressure 119/63 with oxygen saturation of 94% on 2.5 L nasal cannula. His troponin x1 and CXR are pending. He received 25 mg metoprolol 1, simethicone 80 mg 1 in addition to 2 sublingual nitros. He also was given a 500 cc bolus of normal saline and was started on NS @ 125 ml/hr while in PACU. His chest pain is currently improved. Patient was seen this morning in rounds. He denied any recurrence of chest pain. He does give history of gastroesophageal reflux and is status post Manuel fundoplication. Past Medical History Cardiac Medical History: Reports: Hypertension, Other - Angina Denies: Coronary Artery Disease, Myocardial Infarction Pulmonary Medical History: Reports: Bronchitis - acute bronchitis Denies: Asthma, Chronic Obstructive Pulmonary Disease (COPD), Pneumonia Neurological Medical History: Reports: Other - TIA Denies: Seizures GI Medical History: Reports: Gastroesophageal Reflux Disease, Other - chronic cholecystitis. Musculoskeltal Medical History: Denies: Arthritis Psychiatric Medical History: Reports: Depression Hematology: Denies: Anemia Past Surgical History Past Surgical History: Reports: Cholecystectomy, Orthopedic Surgery - r knee, lumbar back reconstruction surgery, Other - Status post fundoplication gastric surgery Social History Information Source: Patient Smoking Status: Former Smoker Cigarettes Packs Per Day: 1 Number of Years Smokin - Quit in 1997 Frequency of Alcohol Use: Heavy - Beer and hard liquor for about 10 years. He quit in 1989. Hx Recreational Drug Use: No Drugs: None Hx Prescription Drug Abuse: No - Advance Directive Resuscitation Status: Full Code Family History Family History: Hypertension, Other - Early heart attack Parental Family History Reviewed: Yes Children Family History Reviewed: Yes Sibling(s) Family History Reviewed.: Yes Medication/Allergy Home Medications: Amlodipine Besylate [Norvasc 10 mg Tablet] 10 mg PO DAILY 12/18/17 Aspirin [Aspirin EC] 81 mg PO DAILY 12/18/17 Cetirizine HCl [Zyrtec] 10 mg PO DAILY 12/18/17 Cyclobenzaprine HCl [Flexeril 10 mg Tablet] 10 mg PO BIDP PRN 12/18/17 Docusate Calcium [Stool Softener] 240 mg PO HSP PRN 12/18/17 Gabapentin [Neurontin 300 mg Capsule] 300 mg PO Q12 12/18/17 Hydrochlorothiazide [Hydrodiuril 25 mg Tablet] 25 mg PO DAILY 12/18/17 Losartan Potassium [Cozaar 100 mg Tablet] 100 mg PO DAILY 12/18/17 Meclizine HCl [Antivert 25 mg Tablet] 25 mg PO TIDP PRN 12/18/17 Metoprolol Tartrate [Lopressor 25 mg Tablet] 25 mg PO Q12 12/18/17 Nitroglycerin [Nitrostat 0.4 mg (1/150 Gr) Tabs 25/Bottle] 1 tab SL Q5MP PRN Omeprazole 20 mg PO DAILY 12/18/17 Sertraline HCl [Zoloft 50 mg Tablet] 150 mg PO DAILY 12/18/17 Simethicone 80 mg PO DAILYP PRN 12/18/17 Aspirin [Aspirin 81 mg Chewable Tablet] 81 mg PO DAILY tab.chew 12/19/17 Atorvastatin Calcium [Lipitor 10 mg Tablet] 10 mg PO QHS #30 tablet 12/19/17 Cetirizine HCl [Zyrtec 10 mg Tablet] 10 mg PO DAILY tablet 12/19/17 Docusate Sodium [Colace 100 mg Capsule] 200 mg PO QHS #60 capsule 12/19/17 Gabapentin [Neurontin 300 mg Capsule] 300 mg PO Q12 capsule 12/19/17 Hydrochlorothiazide [Hydrodiuril 25 mg Tablet] 25 mg PO QAM tablet 12/19/17 Lansoprazole [Prevacid 30 mg Odt Tablet] 30 mg PO DAILY #60 tab.rap.dr 12/19/17 Losartan Potassium [Cozaar 50 mg Tablet] 100 mg PO DAILY tablet 12/19/17 Meclizine HCl [Antivert 25 mg Tablet] 25 mg PO Q8HP PRN tablet 12/19/17 Metoprolol Succinate [Toprol Xl 25 mg Tab.sr] 25 mg PO Q12A #60 tab.sr.24h 12/19 Nitroglycerin [Nitrostat 0.4 mg (1/150 Gr) Tabs 25/Bottle] 1 tab SL Q5MP PRN bottle 12/19/17 Sertraline HCl [Zoloft 50 mg Tablet] 150 mg PO DAILY tablet 12/19/17 Simethicone [Mylicon 80 mg Chewable Tablet] 80 mg PO DAILY tab.chew 12/19/17 Allergies/Adverse Reactions: morphine [Morphine] Allergy (Severe, Verified 12/19/17 01:39) Respiratory arrest Review of Systems Review of Systems: Please see history of present illness and past medical history as wall. Constitutional: No fever or chills reported. Head : No recent chronic headaches, recent head injury. Eyes: No recent eye pain, diplopia, redness, discharge, acute visual changes. Ears: No recent chronic ear pain, acute hearing loss, ear discharge. Oral cavity: No recent ulcerations, bleeding, oral cavity discomfort. Neck: No recent acute neck pain reported. Hematologic: No recent easy bruising or bleeding or hematologic malignancy reported. Lymphatic: No recent lymphatic malignancy, chronic lymphadenopathy reported yet Cardiovascular system review: See history of present illness. Respiratory system review: No recent chronic cough, hemoptysis, blood clots in the lungs reported. Mild Shortness of breath on exertion Gastrointestinal system review: Negative for any recent acute or chronic abdominal pain, hematemesis, melena, recent change in bowel habits. Patient did note some nausea. Genitourinary system review: No recent acute or chronic hematuria, flank pain, UTI etc. reported. Skin system review: Negative for any recent abnormal bruising, no rash, no pruritus reported. Neurologic: No prior history of strokes, mini strokes, seizure disorder. Psychologic: No history of major psychosis or major depression reported. Musculoskeletal: Minor aches and pains reported. No acute joint swelling reported. Endocrine: No recent polyuria, polydipsia, recent heat or cold intolerance. Physical Exam Vital Signs: Temp Pulse Resp BP Pulse Ox 98.0 F 70 18 122/71 96 12/19/17 18:31 12/19/17 20:05 12/19/17 18:31 12/19/17 18:31 12/19/17 18:31 Pulse Oximeter Continuous Start: 12/18/17 23: 17 Freq: RTQ4 Status: Complete Document 12/19/17 09:20 TPO (Rec: 12/19/17 09:20 TPO [email or web address]) Pulse Oximetry Assessment Oxygen Saturation (92-100) 96 Oxygen Flow Rate (L/min) 2 Oxygen Delivery Method Nasal Cannula Fraction of Inspired Oxygen (FIO2) 28 Equipment Usage Equipment Discontinued Continuous SpO2 Machine # 13 Intake & Output 12/18/17 12/19/17 12/20/17 06:59 06:59 06:59 Intake Total 3600 1980 Output Total 1020 Balance 2580 1980 Weight 90.1 kg Exam: GENERAL: well-nourished and in no acute distress. Alert and oriented x3 HEAD: Atraumatic, normocephalic. EYES: Pupils equal round and reactive to light, extraocular movements intact, sclera anicteric, conjunctiva are normal. ENT: TMs normal, nares patent, oropharynx clear without exudates. Moist mucous membranes. No oral ulcerations or bleeding gums noted NECK: supple without lymphadenopathy. Trachea is central. No cervical or axillary lymphadenopathy noted. Carotids are 2+, JVD WNL LUNGS: Respiration seems nonlabored, no significant accessory muscle action noted. Breath sounds clear to auscultation bilaterally and equal noted. No wheezes rales or rhonchi noted. No significant dullness noted on percussion. CHEST: Palpation of the chest wall shows no significant chest wall tenderness. No other significant abnormalities noted. HEART: [place] [employer], No PSH, 1/6 EDVIN aortic area, 1/6 zapata systolic murmur mitral area, no rubs, no gallops. ABDOMEN: Soft, no significant tenderness appreciated, normoactive bowel sounds. No guarding, no rebound. No rigidity noted . No masses appreciated. EXTREMITIES: Pedal pulses are 1-2+, no calf tenderness noted. No clubbing or cyanosis.trace to 1+ pedal edema noted NEUROLOGICAL: Focused neurological exam showed no significant neurologic deficit. Normal speech, no focal weakness appreciated. PSYCH: Normal mood, normal affect. Judgment and insight within normal limits. SKIN: No significant ecchymosis, rash, ulcerations or signs of pruritus noted. MUSCULOSKELETAL EXAM: No significant joint swelling noted. Results Laboratory Results: 12/19/17 03:45 12/18/17 21:50 12/18/17 12/19/17 12/19/17 21:50 03:45 03:45 WBC 9.8 RBC 4.79 Hgb 14.1 Hct 40.3 MCV 84 MCH 29.5 MCHC 35.0 RDW 14.0 Plt Count 259 Sodium 138.2 Potassium 4.4 Chloride 104 Carbon Dioxide 27 Anion Gap 7 BUN 17 Creatinine 0.79 Est GFR ( Amer) > 60 Est GFR (Non-Af Amer) > 60 Glucose 133 H Calcium 8.5 Total Bilirubin 0.7 AST 82 H ALT 119 H Alkaline Phosphatase 37 L Total Protein 5.8 L Albumin 3.4 L Triglycerides 34 Cholesterol 174.02 LDL Cholesterol Direct 130 H VLDL Cholesterol 7.0 L HDL Cholesterol 40 12/18/17 12/18/17 12/18/17 20:10 20:10 21:50 Creatine Kinase 66 CK-MB (CK-2) 0.88 Troponin I < 0.012 < 0.012 NT-Pro-B Natriuret Pep 12/19/17 12/19/17 12/19/17 03:45 10:00 10:00 Creatine Kinase CK-MB (CK-2) Troponin I < 0.012 < 0.012 NT-Pro-B Natriuret Pep 194 EKG Comments: Twelve-lead EKG shows sinus rhythm, no acute ST-T wave changes noted. Impressions: Chest X-Ray 12/18/17 00:00 IMPRESSION: NO ACUTE RADIOGRAPHIC FINDING IN THE CHEST. Assessment & Plan - Diagnosis (1) Chest pain Qualifiers: Chest pain type: unspecified Qualified Code(s): R07.9 - Chest pain, unspecified Is this a current diagnosis for this admission?: Yes (2) Essential hypertension Is this a current diagnosis for this admission?: Yes (3) GERD (gastroesophageal reflux disease) Qualifiers: Esophagitis presence: without esophagitis Qualified Code(s): K21.9 - Gastro -esophageal reflux disease without esophagitis Is this a current diagnosis for this admission?: Yes (4) Dyslipidemia Is this a current diagnosis for this admission?: Yes (5) Depression Qualifiers: Depression Type: unspecified Qualified Code(s): F32.9 - Major depressive disorder, single episode, unspecified Is this a current diagnosis for this admission?: Yes - Notes Notes: Chest pain: So far cardiac enzymes 4 has been negative. EKG is nonacute. Patient has no recurrence of chest pain. Patient had a negative stress test in July. It is felt that patient chest pain is probably related to esophageal spasm and is most likely noncardiac given negative enzymes in spite of significant prolonged chest pain. Patient could also have anxiety panic disorder. Patient has a history of depression. At this point feel that patient could be discharged with aspirin, beta-vasiliy, statins. Patient will also benefit from double dose proton pump inhibitor. Patient can follow-up with me. Further cardiac evaluation may be indicated if patient has recurrence of chest pain. Hypertension: Currently well controlled. Gastroesophageal reflux disease: Recommend double dose proton pump inhibitor. History of anxiety panic disorder/depression: Patient will benefit from screening for this disorder. Patient advised to report any further problems. I will be happy to follow patient in the office. - Time Time Spent: 30 to 50 Minutes - More than 50% of the time spent coordinating care , discussing management plans with involved caregivers. Management plans discussed with involved personnels. Medical decision making was of moderate to high complexity, patient's has multiple comorbidities. Medications reviewed and adjusted accordingly: Yes
[2017-12-19] MEDS ORDERED: ATORVASTATIN CALCIUM 10 MG TABLET PO SCH (22:00)
[2017-12-20] MEDS ORDERED: ASPIRIN 81 MG TABLET, CHEWABLE PO SCH (10:00)
[2017-12-20] MEDS ORDERED: LANSOPRAZOLE 30 MG TAB.RAP.DR PO SCH (10:00)
== END 2017-12-19 19:00 | disposition home or self-care (01) ==
LOC: OROUT 12-18 10:56 → EDSTATUS 12-18 16:00 → OROUT 12-18 20:30 → 4W 12-18 20:30 → OROUT 12-19 19:00
PROVIDERS: ADMIT Surgery; ATTEND Surgery
PROC: 0WQF4ZZ Repair Abdominal Wall, Percutaneous Endoscopic Approach (ICD-10-PCS; 2017-12-18)
PROC: 0FT44ZZ Resection of Gallbladder, Percutaneous Endoscopic Approach (ICD-10-PCS; principal; 2017-12-18 13:00)
DX: K80.10 Calculus of gallbladder with chronic cholecystitis without obstruction (principal); K42.9 Umbilical hernia without obstruction or gangrene; I97.89 Other postprocedural complications and disorders of the circulatory system, not elsewhere classified; R07.89 Other chest pain; I95.81 Postprocedural hypotension; J95.89 Other postprocedural complications and disorders of respiratory system, not elsewhere classified; R09.02 Hypoxemia; Y83.6 Removal of other organ (partial) (total) as the cause of abnormal reaction of the patient, or of later complication, without mention of misadventure at the time of the procedure; I10 Essential (primary) hypertension; E78.5 Hyperlipidemia, unspecified; K21.9 Gastro-esophageal reflux disease without esophagitis; F32.9 Major depressive disorder, single episode, unspecified; R04.2 Hemoptysis; R06.01 Orthopnea; K92.0 Hematemesis; K92.1 Melena; R63.1 Polydipsia; R35.8 Other polyuria; I20.8 Other forms of angina pectoris; Z98.890 Other specified postprocedural states; Z86.73 Personal history of transient ischemic attack (TIA), and cerebral infarction without residual deficits; Z87.891 Personal history of nicotine dependence; Z82.49 Family history of ischemic heart disease and other diseases of the circulatory system; Z79.899 Other long term (current) drug therapy; Z79.82 Long term (current) use of aspirin
CPT/HCPCS: 47562; 49652; J2250; 36415; 71045; 790; 80053; 80061; 82550; 82553; 83880; 84132; 84484; 85027; 88304; 93005; 93010; 93306; 94762; J0131; J0330; J0690; J1100; J1650; J2405; J2550; J2704; J2765; J3010; J3490; J7030; J7040

== ENCOUNTER → 2020-01-21 | Outpatient (CLI) | payer OTHER ==
--- NOTE | 2020-01-21 13:46 | RADIOLOGY REPORT (SQ) ---
EXAM DESCRIPTION: U/S SCROTUM W/O DOPPLER COMPLETED DATE/TIME: 01/21/2020 1:19 pm REASON FOR STUDY: (N50.9)DISORDER OF MALE GENITAL ORGANS, UNSPECIFIED;TESTICUALR NODULE N50.9 DISOR EVANGELISTA OF MALE GENITAL ORGANS, UNSPECIFIED COMPARISON: 05/25/2011 TECHNIQUE: Static and realtime villalpando scale imaging of the scrotum and testes. Selected color Doppler and spectral images recorded to document blood flow. LIMITATIONS: None. FINDINGS: RIGHT: TESTICLE: Normal size, 3.4 x 3.4 x 2.4 cm. Normal echotexture. Normal blood flow. No mass. EPIDIDYMIS: Normal, 14 mm. HYDROCELE OR VARICOCELE: Small hydrocele. HERNIA OR EXTRA-TESTICULAR MASS: No. OTHER: No other significant finding. LEFT: TESTICLE: Normal size, 3.5 x 2.8 x 2.3 cm. Normal echotexture. Normal blood flow. No mass. EPIDIDYMIS: Enlarged, 5.5 x 3.5 x 3 cm. Heterogeneous. There is a complex cystic lesion measuring 4 .8 x 3.1 x 2.6 cm. HYDROCELE OR VARICOCELE: No. HERNIA OR EXTRA-TESTICULAR MASS: There is an 8 mm calcification, possible scrotolith. OTHER: No other significant finding. IMPRESSION: There is a large cystic lesion in in the left epididymis, likely spermatocele. Scrotoli th in the left side of the scrotum. TECHNICAL DOCUMENTATION: JOB ID: [id number] [email or web address]- All Rights Reserved Reading location - IP/workstation name: [email or web address]
== END ==
LOC: RAD 12:40
PROVIDERS: ATTEND Family Medicine
DX: N50.3 Cyst of epididymis (principal)
CPT/HCPCS: 76870